=== PATIENT | female | born 1945 ===

== ENCOUNTER 2016-07-10 22:40 | Inpatient (IN) | payer OTHER, SELFPAY ==
[2016-07-10 22:40] VITALS: BMI 35.1
--- NOTE | 2016-07-10 23:38 | ED PDOC ---
HPI: Altered Mental Status Chief Complaint (Provider): Generalized weakness, confusion History Per: Patient, Family Onset/Duration Of Symptoms: Days Current Symptoms Are (Timing): Still Present Usual Baseline: Alert Oriented Use Of Anticoag/Antiplatlets: No Character Of Deficits: Left: Weakness (extremities), Right: Weakness Associated Symptoms: Confused, Weakness. denies: Fever, Chills, Chest Pain, Headache, Seizure, Vomiting, Diarrhea Additional Complaint(s): This is a 70 y/o Female with PMHx significant for Liver Cirrhosis w/ Esophageal varices, and Diabetes Mellitus under insulin treatment who presents accompanied by her family complaining of generalized weakness since yesterday, but progressively getting worse as per her son. Also as per patient's family she has been confused since today, associated with slurred speech, and body aches. Family states that " this is not her mental status baseline". Denies fever, chills, nausea, vomiting, diarrheas. Family reports that patient used to spit blood a while after she got the diagnosis of esophageal varices, however since the last two days has been increasing in amount. Denies dark stools or blood mixed with stools. Allergies: none Meds: Insulin, Spirinolactone, Furosemide, Omeprazole, Gabapentin, Lactulose PMD: Dr. Palmer at [facility] <Yani Jackson - Last Filed: 07/11/16 06:32> <Roby Tidwell - Last Filed: 07/12/16 15:56> Time Seen by Provider: 07/10/16 22:59 Chief Complaint (Nursing): Weakness/Neurological Deficit Supervising Attending Note - Supervising Attending Note The Documented history was done by the: Physician Environmental Health And Safety Manager, Attending Physician The documented physical exam was done by the: Physician Environmental Health And Safety Manager, Attending Physician The documented procedures were done by the: Physician Environmental Health And Safety Manager, Attending Physician EM CAVEAT: Acuity of Condition - Attestation: I have personally seen and examined this patient.: Yes I have fully participated in the care of the patient.: Yes I have reviewed all pertinent clinical information: Yes <Roby Tidwell - Last Filed: 07/12/16 15:56> Past Medical History Vital Signs: Last Vital Signs Temp 98.1 F 07/10/16 22:48 Pulse 68 07/10/16 22:48 Resp 16 07/10/16 22:48 BP 138/51 L 07/10/16 22:48 Pulse Ox 100 07/10/16 22:48 - Medical History PMH: Diabetes Denies: Chronic Kidney Disease Other PMH: Liver cirrhosis - Surgical History Surgical History: Cholecystectomy Denies: Pacemaker - Family History Family History: States: Unknown Family Hx <Yani Jackson - Last Filed: 07/11/16 06:32> Vital Signs: Last Vital Signs Temp 99 F 07/12/16 15:47 Pulse 74 07/12/16 15:47 Resp 20 07/12/16 15:47 BP 109/59 L 07/12/16 15:47 Pulse Ox 98 07/12/16 15:47 <Roby Tidwell - Last Filed: 07/12/16 15:56> - Home Medications Home Medications: Ambulatory Orders Medication Instructions Recorded Gabapentin [Neurontin] 300 mg PO DAILY 03/19/16 Furosemide [Lasix] 40 mg PO DAILY 07/11/16 Insulin Lispro Mix 75/25 [HumaLog 20 units SC DIN 07/11/16 MIX 75/25] Insulin Lispro Mix 75/25 [HumaLog 25 units SC ACB 07/11/16 MIX 75/25] Lactulose [Kristalose] 20 gm PO QID 07/11/16 Omeprazole 40 mg PO DAILY 07/11/16 Spironolactone [Aldactone] 50 mg PO DAILY 07/11/16 - Allergies Allergies/Adverse Reactions: Allergies Allergy/AdvReac Type Severity Reaction Status Date / Time No Known Allergies Allergy Verified 07/10/16 22:47 Review of Systems ROS Statement: Except As Marked, All Systems Reviewed And Found Negative <Yani Jackson - Last Filed: 07/11/16 06:32> Physical Exam - Physical Exam Head Exam: Positive for: ATRAUMATIC, NORMOCEPHALIC Skin: Positive for: Pallor Eye Exam: Negative for: Nystagmus, Conjunctival injection, Scleral icterus Cardiovascular/Chest: Positive for: Regular Rate, Rhythm Respiratory: Positive for: Normal Breath Sounds Gastrointestinal/Abdominal: Positive for: Bowel Sounds (increased), Soft, Organomegaly. Negative for: Tenderness, Distended, Guarding, Rebound, Asicites Back: Negative for: L CVA Tenderness, R CVA Tenderness Extremity: Positive for: Capillary Refill (WNL). Negative for: Pedal Edema Neurologic/Psych: Positive for: Oriented (x 3), Motor/Sensory Deficits ( weakness in upper and lower extremities), Other (drowsy, but arousable ) <Yani Jackson - Last Filed: 07/11/16 06:32> - Laboratory Results Result Diagrams: 07/10/16 00:14 07/10/16 00:14 - ECG O2 Sat by Pulse Oximetry: 100 <Yani Jackson - Last Filed: 07/11/16 06:32> - Laboratory Results Result Diagrams: 07/12/16 04:00 07/12/16 05:25 <Roby Tidwell - Last Filed: 07/12/16 15:56> Medical Decision Making Medical Decision Making: A: 70 y/o F with Liver cirrhosis/esophagela varice, and DM with altered mental status, and generalized weakness. R/O Hepatic encephalopathy vs CVA PLan: CBC, CMP, Type & screen, Ammonia levels, PT/PTT Drug screen EKG showed Normal findings, No acute ST or T wave changes Head CT w/o contrast Case discussed with Yaw Raphael Re-assessment CBC: showed H/H: WNL , however elevated MCV and RDW possible due to mixed deficiencies PT/INR : elevated, most likely due to her chronic Liver cirrhosis condition CMP: showed: increased BS: 162 mg/dl AST/ALT/Alkaline Phosphate elevated most likely due to chronic liver condition Ammonia levels elevated most likely due to chronic liver disease:96 Albumin decreased most likely due to chronic liver disease Inpatient team consult appreciated for hospital admission Case discussed with Dr. Tidwell <Yani Jackson - Last Filed: 07/11/16 06:32> Disposition - Patient ED Disposition Is Patient to be Admitted: Yes Discussed With : Roby Tidwell - Disposition Disposition Time: 01:30 <Yani Jackson Last Filed: 07/11/16 06:32> - Patient ED Disposition Is Patient to be Admitted: Yes Discussed With : Palak Best Doctor Will See Patient In The: ED Counseled Patient/Family Regarding: Studies Performed, Diagnosis - Disposition Disposition Time: 01:00 - Pt Status Changed To: Hospital Disposition Of: Inpatient - Admit Certification Admit to Inpatient:: After my assessment, the patient will require hospitalization for at least two midnights. This is because of the severity of symptoms shown, intensity of services needed, and/or the medical risk in this patient being treated as an outpatient. - POA Present On Arrival: Poor Glycemic Control <Roby Tidwell - Last Filed: 07/12/16 15:56> - Clinical Impression Clinical Impression: Hepatic encephalopathy, Cirrhosis, Altered mental status, Serum ammonia increased, Generalized muscle weakness - Disposition Condition: FAIR
[2016-07-11 00:18] LABS: BASO % 0.6 % (0.0-2.0); EOS % 1.1 % (0.0-4.0); HEMATOCRIT 36.4 % (34.0-47.0); LYMPH # 0.9 K/uL (1.0-4.3); LYMPH % 22.8 % (20.0-40.0); MEAN CELL VOLUME 104.2 fl (81.0-99.0); MEAN CORPUSCULAR HGB CONC 33.5 g/dL (33.0-37.0); MEAN PLATELET VOLUME 9.9 fl (7.2-11.7); MONO # 0.5 K/uL (0.0-0.8); MONO % 12.5 % (0.0-10.0); NEUT # 2.6 K/uL (1.8-7.0); NRBC % 0.1 % (0.0-0.0); RED CELL DISTRIBUTION WIDTH 14.6 % (11.5-14.5); WHITE BLOOD COUNT 4.1 K/uL (4.8-10.8)
[2016-07-11 00:29] LABS: ALCOHOL SERUM < 10 mg/dl (0-10); ALKALINE PHOSPHATASE 224 U/L (38-126); ALT/SGPT 60 U/L (9-52); AST/SGOT 76 U/L (14-36); BILIRUBIN,TOTAL 1.1 mg/dl (0.2-1.3); BLOOD UREA NITROGEN 18 mg/dl (7-17); CALCIUM 9.1 mg/dL (8.4-10.2); CARBON DIOXIDE 21 mmol/L (22-30); CHLORIDE 102 mmol/L (98-107); GFR AFRICAN-AMERICAN > 60; GLUCOSE,RANDOM 144 mg/dL (65-105); POTASSIUM 4.1 MMOL/L (3.6-5.0); SODIUM 134 mmol/l (132-148)
[2016-07-11] MEDS ORDERED: Sodium Chloride 0.9% 1,000 ML IV SCH (00:30)
[2016-07-11 00:33] LABS: ALB/GLOB RATIO 0.8 (1.0-2.1)
[2016-07-11 00:33] LABS: PARTIAL THROMBOPLASTIN TIME 31.6 SECONDS (23.3-32.5)
--- NOTE | 2016-07-11 02:07 | CP.PCM.HP ---
History of Present Illness - History of Present Illness History of Present Illness: 70F seen and examined at bedside, primary source of HPI from son (Maki). 70F brought in by family for altered mental status that was noticed yesterday but worsened today. Last week she did have a little bit of "the flu" but only took advil and has otherwise been "fine". Son denies: SOB/CP/palpitations/loss of appetite/fever/chills/N/V/abdominal pain/diarrhea/sick contacts/focal deficits/speech changes, and say she has been taking all medications. He has noticed that today she went to the bathroom frequently and small amounts as per . Last BM today was formed, yellowish. Pt was oriented to person only and denied dysuria, but has chronic abdominal pain. PMD: [facility], last visit 06/14/16 GI: Dr Alejandre, last visit 05/31/16 PMH: Cirrhosis(etiology unknown), DM, HTN, Esophageal varices, denies CVA/KS/DVT /PE ALL: NKDA Meds: See Med Rec Smoke: Denies Alcohol: Denies Drugs: Denies Present on Admission - Present on Admission Any Indicators Present on Admission: Yes History of Uncontrolled Diabetes: Yes Review of Systems - Review of Systems Review of Systems: As per family in HPI Past Patient History - Past Medical History & Family History Past Medical History?: Yes - Past Social History Smoking Status: Never Smoked - CARDIAC Hx Cardiac Disorders: Yes - PULMONARY Hx Respiratory Disorders: No - NEUROLOGICAL Hx Neurological Disorder: Yes - HEENT Hx HEENT Problems: No - RENAL Hx Chronic Kidney Disease: No - ENDOCRINE/METABOLIC Hx Endocrine Disorders: No - HEMATOLOGICAL/ONCOLOGICAL Hx Blood Disorders: No - INTEGUMENTARY Hx Dermatological Problems: No - MUSCULOSKELETAL/RHEUMATOLOGICAL Hx Musculoskeletal Disorders: No - GASTROINTESTINAL Hx Gastrointestinal Disorders: No - GENITOURINARY/GYNECOLOGICAL Hx Genitourinary Disorders: No - PSYCHIATRIC Hx Psychophysiologic Disorder: No - SURGICAL HISTORY Hx Cholecystectomy: Yes - ANESTHESIA Hx Anesthesia: Yes Hx Anesthesia Reactions: No Hx Malignant Hyperthermia: No Meds Allergies/Adverse Reactions: Allergies Allergy/AdvReac Type Severity Reaction Status Date / Time No Known Allergies Allergy Verified 07/10/16 22:47 Physical Exam - Constitutional Appears: Non-toxic (Drowsy), No Acute Distress - Head Exam Head Exam: ATRAUMATIC, NORMAL INSPECTION - Eye Exam Eye Exam: Conjunctival injection (LEFT eye), EOMI, Normal appearance, PERRL. absent: Nystagmus - ENT Exam ENT Exam: Mucous Membranes Dry, Normal Exam, Normal Oropharynx - Neck Exam Neck exam: Positive for: Full Rom, Normal Inspection - Respiratory Exam Respiratory Exam: Clear to Auscultation Bilateral, NORMAL BREATHING PATTERN. absent: Rales, Rhonchi, Wheezes - Cardiovascular Exam Cardiovascular Exam: REGULAR RHYTHM. absent: JVD - GI/Abdominal Exam GI & Abdominal Exam: Normal Bowel Sounds, Soft. absent: Tenderness - Extremities Exam Extremities exam: Positive for: normal capillary refill, normal inspection, pedal pulses present. Negative for: calf tenderness, pedal edema - Skin Skin Exam: Normal Color, Warm Results - Vital Signs Recent Vital Signs: Last Vital Signs Temp 36.7 C 07/10/16 22:48 Pulse 62 07/11/16 01:50 Resp 14 07/11/16 01:50 BP 129/64 07/11/16 01:50 Pulse Ox 98 07/11/16 01:30 - Labs Result Diagrams: 07/10/16 00:14 07/10/16 00:14 Assessment & Plan (1) Hepatic encephalopathy Assessment and Plan: Recurrent encephalopathy, Ammonia- 96, may be 2/2 UTI although recently recovered from viral URI and taking all medications. No focal deficits(CT head negative)/fevers/leukocytosis/respiratory symptoms to suggest AMS from competing etiology. - Admit to Telemetry - Consult GI (Dr Alejandre) - Repeat Ammonia Level - Lactulose 20g, PO, QID titrate to BM 3x/day Status: Acute (2) DVT prophylaxis Assessment and Plan: Low platelets contraindicated for Lovenox. - SCDs b/l, continuous Status: Acute (3) Cirrhosis Assessment and Plan: Chronic, unknown etiology being followed by Dr Alejandre. Last visit 05/31/2016, pt has small esophageal varices and dilated PD benign pathology. Not stable given recurrent encephalopathy. MELD-Na: 12 - Consult GI (Dr Alejandre) - c/w Spironolactone re-started 06/14/2016 by PMD - c/w Lasix re-started 06/14/16 by PMD - c/w Lactulose started by PMD should titrate to BM 3x/day Status: Chronic (4) Diabetes Assessment and Plan: Chronic, appears to be controlled with A1C-5.5 (03/19/16) - c/w HUmalog Mix 75/25: 25U ACB/20U ACD Status: Chronic (5) HTN (hypertension) Assessment and Plan: Appears that medication was discontinued, will continue to monitor. Status: Chronic
[2016-07-11] MEDS ORDERED: Dextrose 50% SYRINGE Inj (50 ml) IV PRN (02:20)
[2016-07-11] MEDS ORDERED: Glucagon Recombinant 1 mg Inj IM PRN (02:20)
[2016-07-11 07:06] LABS: RBC URINE 1 /hpf (0-3); URINE BACTERIA RARE (<OCC); URINE BILIRUBIN NEGATIVE (NEGATIVE); URINE BLOOD NEGATIVE (NEGATIVE); URINE COLOR YELLOW (YELLOW); URINE GLUCOSE (UA) NEG (Normal); URINE KETONE NEGATIVE (NEGATIVE); URINE LEUKOCYTE ESTERASE TRACE Leu/uL (Negative); URINE PROTEIN NEGATIVE (NEGATIVE); URINE UROBILINOGEN 0.2-1.0 mg/dL (0.2-1.0); WBC URINE 3 /hpf (0-5)
[2016-07-11 07:43] LABS: ALB/GLOB RATIO 0.7 (1.0-2.1); ALKALINE PHOSPHATASE 210 U/L (38-126); ALT/SGPT 60 U/L (9-52); AST/SGOT 77 U/L (14-36); BILIRUBIN,TOTAL 1.3 mg/dl (0.2-1.3); BLOOD UREA NITROGEN 17 mg/dl (7-17); CARBON DIOXIDE 23 mmol/L (22-30); CHLORIDE 106 mmol/L (98-107); GFR AFRICAN-AMERICAN > 60; GLUCOSE,RANDOM 144 mg/dL (65-105); POTASSIUM 4.7 MMOL/L (3.6-5.0); SODIUM 139 mmol/l (132-148); TOTAL PROTEIN 6.6 G/DL (6.3-8.2)
[2016-07-11 07:51] LABS: BASO % 0.5 % (0.0-2.0); EOS % 1.4 % (0.0-4.0); HEMATOCRIT 35.8 % (34.0-47.0); LYMPH # 0.8 K/uL (1.0-4.3); LYMPH % 24.3 % (20.0-40.0); MEAN CELL VOLUME 104.4 fl (81.0-99.0); MEAN CORPUSCULAR HEMOGLOBIN 35.3 pg (27.0-31.0); MEAN CORPUSCULAR HGB CONC 33.8 g/dL (33.0-37.0); MEAN PLATELET VOLUME 9.6 fl (7.2-11.7); MONO # 0.4 K/uL (0.0-0.8); MONO % 13.5 % (0.0-10.0); NEUT % 60.3 % (50.0-75.0); NRBC % 0.2 % (0.0-0.0); WHITE BLOOD COUNT 3.3 K/uL (4.8-10.8)
[2016-07-11 08:11] LABS: THYROID STIMULATING HORMONE 1.74 mIU/ML (0.46-4.68)
[2016-07-11] MEDS: Pantoprazole 40 mg EC Tab PO SCH (08:41)
[2016-07-11] MEDS: Insulin Lispro Mix 75/25 100 units/ml (HumaLog) 10ml SC SCH ×2 (08:42→17:12)
[2016-07-11] MEDS ORDERED: Enoxaparin 40 mg Syringe SC SCH (09:00)
[2016-07-11] MEDS ORDERED: Lactulose 10 gm/15 ml Syrup PO SCH (09:00)
[2016-07-11] MEDS ORDERED: Patient's Own Med (Omeprazole [Omeprazole] 40 MG) PO SCH (09:00)
[2016-07-11] MEDS ORDERED: LACTULOSE 20 GM PO SCH (09:00)
--- NOTE | 2016-07-11 09:01 | CARD ---
APPROVED REPORT EKG Measurement Heart [id number] <Conclusion> Normal sinus rhythm Normal ECG
--- NOTE | 2016-07-11 09:46 | CT ---
PROCEDURE: CT HEAD WITHOUT CONTRAST. HISTORY: confusion COMPARISON: 03/19/2016 TECHNIQUE: Axial computed tomography images were obtained through the head/brain without intravenous contrast. Radiation dose: Total exam DLP = 751.30 mGy-cm. This CT exam was performed using one or more of the following dose reduction techniques: Automated exposure control, adjustment of the mA and/or kV according to patient size, and/or use of iterative reconstruction technique. FINDINGS: HEMORRHAGE: No intracranial hemorrhage. BRAIN: No mass effect or edema. Minimal periventricular chronic microvascular white matter ischemic change. No evidence of acute infarct. Incidentally noted scattered small cortical calcifications common nonspecific. Unchanged from prior examination. These may be infectious or inflammatory in etiology. VENTRICLES: Unremarkable. No hydrocephalus. CALVARIUM: Unremarkable. PARANASAL SINUSES: Unremarkable as visualized. No significant inflammatory changes. MASTOID AIR CELLS: Unremarkable as visualized. No inflammatory changes. OTHER FINDINGS: None. IMPRESSION: No intracranial mass, hemorrhage or evidence of acute infarct. Chronic periventricular white matter ischemic change. Incidental scattered nodular cortical calcifications, nonspecific. Preliminary interpretation of this examination was reported by [facility] at 12:14 a.m. on 07/11/2016. There is concurrence of this report with the preliminary interpretation.
--- NOTE | 2016-07-11 09:54 | CP.PCM.PN ---
Subjective - Date & Time of Evaluation Date of Evaluation: 07/11/16 Time of Evaluation: 09:50 - Subjective Subjective: Patient seen and examined at bed side while she was eating breakfast , alert oreientedx3 , Reported felling better, good appetite, she reported one bowel movement normal last night , no evidence of active bleeding H/H stable . she denied any complain. Ammonia elevated 119. Objective - Vital Signs/Intake and Output Vital Signs (last 24 hours): Temp Pulse Resp BP Pulse Ox 98.3 F 65 18 112/63 100 07/11/16 08:03 07/11/16 08:03 07/11/16 08:03 07/11/16 08:42 07/11/16 08:03 - Medications Medications: Current Medications Dextrose (Glutose 15) 0 gm PO ONCE PRN; Protocol PRN Reason: Hypoglycemia Protocol Dextrose (Dextrose 50% Inj) 0 ml IV STAT PRN; Protocol PRN Reason: Hyglycemia Protocol Furosemide (Lasix) 40 mg PO DAILY [facility] Last Admin: 07/11/16 08:42 Dose: 40 mg Glucagon (Glucagen Diagnostic Kit) 0 mg IM STAT PRN; Protocol PRN Reason: Hypoglycemia Protocol Sodium Chloride (Sodium Chloride 0.9%) 1,000 mls @ 50 mls/hr IV .Q20H [facility] Stop: 07/12/16 00:31 Last Admin: 07/11/16 00:49 Dose: 50 mls/hr Insulin Lispro Protam/Lispro Human (Humalog Mix 75/25) 25 units SC ACB [facility] Last Admin: 07/11/16 08:42 Dose: 25 units Insulin Lispro Protam/Lispro Human (Humalog Mix 75/25) 20 units SC DIN [facility] Lactulose (Enulose) 20 gm PO QID [facility] Last Admin: 07/11/16 08:41 Dose: 20 gm Pantoprazole Sodium (Protonix Ec Tab) 40 mg PO DAILY [facility] Last Admin: 07/11/16 08:41 Dose: 40 mg Spironolactone (Aldactone) 50 mg PO DAILY [facility] Last Admin: 07/11/16 08:42 Dose: 50 mg - Labs Labs: 07/11/16 06:30 07/11/16 06:30 PT 12.4 SECONDS (9.6-11.2) H 07/11/16 06:30 INR 1.19 (0.92-1.08) H 07/11/16 06:30 APTT 31.6 SECONDS (23.3-32.5) 07/10/16 23:59 - Constitutional Appears: No Acute Distress - Head Exam Head Exam: NORMAL INSPECTION - Eye Exam Eye Exam: Normal appearance - ENT Exam ENT Exam: Mucous Membranes Moist - Neck Exam Neck Exam: Full ROM - Respiratory Exam Respiratory Exam: Clear to Ausculation Bilateral. absent: Rales, Rhonchi, Wheezes - Cardiovascular Exam Cardiovascular Exam: REGULAR RHYTHM, RRR, +S1, +S2. absent: JVD - GI/Abdominal Exam GI & Abdominal Exam: Soft, Normal Bowel Sounds - Extremities Exam Extremities Exam: Full ROM, Normal Capillary Refill - Neurological Exam Neurological Exam: Alert, Awake, Normal Gait, Oriented x3 Neuro motor strength exam: Left Upper Extremity: 5, Right Upper Extremity: 5, Left Lower Extremity: 5, Right Lower Extremity: 5 - Psychiatric Exam Psychiatric exam: Normal Affect - Skin Skin Exam: Dry, Normal Color Assessment and Plan - Assessment and Plan (Free Text) Assessment: (1) Hepatic encephalopathy Assessment and Plan: Recurrent encephalopathy, Ammonia- 96, may be 2/2 UTI although recently recovered from viral URI and taking all medications. No focal deficits(CT head negative)/fevers/leukocytosis/respiratory symptoms to suggest AMS from competing etiology. - Low prot diet 60g /day - Consult GI (Dr Alejandre) - Ammonia Level 119 - Lactulose 20g, PO, QID titrate to BM 3x/day -Repeat Amonia PM Status: Acute (2) Cirrhosis Assessment and Plan: Chronic, unknown etiology being followed by Dr Alejandre. Last visit 05/31/2016, pt has small esophageal varices and dilated PD benign pathology. Not stable given recurrent encephalopathy. MELD-Na: 12 - Consult GI (Dr Alejandre) - c/w Spironolactone re-started 06/14/2016 by PMD - c/w Lasix re-started 06/14/16 by PMD - c/w Lactulose started by PMD should titrate to BM 3x/day Status: Chronic (3) Diabetes Assessment and Plan: - controlled IDDM Chronic, appears to be controlled with A1C-5.5 (03/19/16) - c/w HUmalog Mix 75/25: 25U ACB/20U ACD - hypoglycemia protocols -ADA diet Status: Chronic (4) HTN (hypertension) Assessment and Plan: Appears that medication was discontinued, will continue to monitor. Status: Chronic (5) DVT prophylaxis Assessment and Plan: Low platelets contraindicated for Lovenox. - SCDs b/l, continuous Status: Acute
[2016-07-11] MEDS: Insulin Regular 100 units/ml SC SCH ×2 (17:12→23:07)
[2016-07-11 17:21] LABS: FOLATE 15.1 ng/mL
[2016-07-12 06:22] LABS: HEMATOCRIT 33.3 % (34.0-47.0); MEAN CORPUSCULAR HEMOGLOBIN 35.4 pg (27.0-31.0); MEAN CORPUSCULAR HGB CONC 33.7 g/dL (33.0-37.0)
[2016-07-12 06:27] LABS: BLOOD UREA NITROGEN 17 mg/dl (7-17); CALCIUM 8.4 mg/dL (8.4-10.2); CARBON DIOXIDE 20 mmol/L (22-30); CHLORIDE 106 mmol/L (98-107); GFR AFRICAN-AMERICAN > 60; GLUCOSE,RANDOM 132 mg/dL (65-105); POTASSIUM 4.4 MMOL/L (3.6-5.0); SODIUM 136 mmol/l (132-148)
[2016-07-12] MEDS: Insulin Lispro Mix 75/25 100 units/ml (HumaLog) 10ml SC SCH ×2 (06:41→16:42)
[2016-07-12] MEDS: Insulin Regular 100 units/ml SC SCH ×4 (06:43→23:59)
--- NOTE | 2016-07-12 08:19 | CP.PCM.PN ---
Subjective - Date & Time of Evaluation Date of Evaluation: 07/12/16 Time of Evaluation: 08:11 - Subjective Subjective: pt seen and examined at bedside this morning. NAEO. Lying in bed comfortably, NAD. Reports 1 bowel movement last night and one this morning, 2 yesterday during the day. No new complaints. Alert to self and place, not date/time. Tolerating PO intake without difficulty. Denies fever/chills, headaches, changes in vision, CP/SOB/palpitations, N/V/C, urinary symptoms, numbness/ tingling. Objective - Vital Signs/Intake and Output Vital Signs (last 24 hours): Temp Pulse Resp BP Pulse Ox 98.4 F 62 18 103/48 L 97 07/12/16 08:01 07/12/16 08:01 07/12/16 08:01 07/12/16 08:01 07/12/16 08:01 - Medications Medications: Current Medications Dextrose (Glutose 15) 0 gm PO ONCE PRN; Protocol PRN Reason: Hypoglycemia Protocol Dextrose (Dextrose 50% Inj) 0 ml IV STAT PRN; Protocol PRN Reason: Hyglycemia Protocol Furosemide (Lasix) 40 mg PO DAILY [facility] Last Admin: 07/11/16 08:42 Dose: 40 mg Glucagon (Glucagen Diagnostic Kit) 0 mg IM STAT PRN; Protocol PRN Reason: Hypoglycemia Protocol Insulin Human Regular (Humulin R) 0 units SC ACCU-CHECK [facility] PRN Reason: Protocol Last Admin: 07/12/16 06:43 Dose: Not Given Insulin Lispro Protam/Lispro Human (Humalog Mix 75/25) 25 units SC ACB [facility] Last Admin: 07/12/16 06:41 Dose: Not Given Insulin Lispro Protam/Lispro Human (Humalog Mix 75/25) 20 units SC DIN [facility] Last Admin: 07/11/16 17:12 Dose: 20 units Lactulose (Enulose) 20 gm PO BID [facility] Last Admin: 07/11/16 17:12 Dose: 20 gm Pantoprazole Sodium (Protonix Ec Tab) 40 mg PO DAILY [facility] Last Admin: 07/11/16 08:41 Dose: 40 mg Spironolactone (Aldactone) 50 mg PO DAILY [facility] Last Admin: 07/11/16 08:42 Dose: 50 mg - Labs Labs: 07/12/16 04:00 07/12/16 05:25 PT 12.4 SECONDS (9.6-11.2) H 07/11/16 06:30 INR 1.19 (0.92-1.08) H 07/11/16 06:30 APTT 31.6 SECONDS (23.3-32.5) 07/10/16 23:59 - Constitutional Appears: Non-toxic, No Acute Distress - Eye Exam Eye Exam: EOMI, Scleral icterus. absent: Conjunctival injection, Nystagmus Pupil Exam: PERRL - ENT Exam ENT Exam: Mucous Membranes Moist - Respiratory Exam Respiratory Exam: Clear to Ausculation Bilateral, NORMAL BREATHING PATTERN. absent: Rales, Rhonchi, Wheezes, Respiratory Distress - Cardiovascular Exam Cardiovascular Exam: REGULAR RHYTHM, RRR, +S1, +S2. absent: Gallop, JVD, Rubs, Murmur - GI/Abdominal Exam GI & Abdominal Exam: Soft, Normal Bowel Sounds. absent: Distended, Guarding, Rigid, Tenderness, Rebound - Extremities Exam Extremities Exam: Normal Inspection. absent: Calf Tenderness, Pedal Edema, Tenderness - Neurological Exam Neurological Exam: Alert, Awake, CN II-XII Intact. absent: Oriented x3 - Psychiatric Exam Psychiatric exam: Normal Affect, Normal Mood - Skin Skin Exam: Dry, Intact, Normal Color, Warm Assessment and Plan - Assessment and Plan (Free Text) Assessment: 70 y/o female with a PMHx remarkable for liver cirrhosis, IDDM2, and hypertension admitted for Hepatic Encephalopathy. Plan: (1) Hepatic encephalopathy -Ammonia on presentation: 96 -Low prot diet: 60 g/day -Consult GI (Dr Alejandre) -Ammonia Level 119 -Lactulose 20g, PO, TID titrate to BM 3x/day -Repeat Ammonia PM (2) Liver Cirrhosis -unknown etiology being followed by Dr Alejandre. Last visit 05/31/2016 -MELD-Na: 12 -Consult GI (Dr Alejandre) -c/w Spironolactone re-started 06/14/2016 by PMD -c/w Lasix re-started 06/14/16 by PMD -c/w Lactulose started by PMD should titrate to BM 3x/day (3) IDDM2 (well controlled) -controlled with A1C-5.5 (03/19/16) -c/w Humalog Mix 75/25: 25U ACB/20U ACD -hypoglycemia protocols -ADA diet (4) Hypertension (well controlled) -Appears that medication was discontinued, will continue to monitor. (5) DVT prophylaxis Low platelets contraindicated for Lovenox. -SCDs
[2016-07-12] MEDS: Pantoprazole 40 mg EC Tab PO SCH (09:20)
--- NOTE | 2016-07-12 13:08 | CP.PCM.CON ---
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 Patient oriented to person and location, not oriented to the year. Family at bedside and patient confirm recent upper respiratory infection last week with use of Advil for pain and fever. Denies recent travel, sick contacts, or antibiotic use. Notes onset of confusion since yesterday leading to ER presentation. Family and patient endorse compliance to diuretics and Lactulose. Patient notes daily bowel movement. She denies fever, chills, sweats, leg swelling, abdominal pain, distension, nausea, vomiting, hematemesis, melena, hematochezia, diarrhea. Prior EGD 04/2016 showed Gastritis, moderate portal hypertensive gastropathy and normal esophagus. EUS 05/06/16 showed small esophageal varices (<5mm), CBD and common hepatic duct dilatation of 11mm in setting of prior cholecystectomy. Family -denies liver cancer, colon cancer Surgical-hysterectomy, cholecystectomy Social-denies tobacco, alcohol, illicit drug use Review of Systems - Review of Systems Review of Systems: A 12-point review of systems negative except for as above Past Patient History - Past Medical History & Family History Past Medical History?: Yes - Past Social History Smoking Status: Never Smoked - CARDIAC Hx Pacemaker: No - PULMONARY Hx Respiratory Disorders: No - NEUROLOGICAL Hx Neurological Disorder: Yes - HEENT Hx HEENT Problems: No - RENAL Hx Chronic Kidney Disease: No - ENDOCRINE/METABOLIC Hx Endocrine Disorders: No - HEMATOLOGICAL/ONCOLOGICAL Hx Blood Disorders: No - INTEGUMENTARY Hx Dermatological Problems: No - MUSCULOSKELETAL/RHEUMATOLOGICAL Hx Musculoskeletal Disorders: No - GASTROINTESTINAL Hx Gastrointestinal Disorders: No - GENITOURINARY/GYNECOLOGICAL Hx Genitourinary Disorders: No - PSYCHIATRIC Hx Psychophysiologic Disorder: No - SURGICAL HISTORY Hx Cholecystectomy: Yes - ANESTHESIA Hx Anesthesia: Yes Hx Anesthesia Reactions: No Hx Malignant Hyperthermia: No Meds Allergies/Adverse Reactions: Allergies Allergy/AdvReac Type Severity Reaction Status Date / Time No Known Allergies Allergy Verified 07/10/16 22:47 - Medications Medications: Current Medications Dextrose (Glutose 15) 0 gm PO ONCE PRN; Protocol PRN Reason: Hypoglycemia Protocol Dextrose (Dextrose 50% Inj) 0 ml IV STAT PRN; Protocol PRN Reason: Hyglycemia Protocol Furosemide (Lasix) 40 mg PO DAILY [facility] Last Admin: 07/12/16 09:19 Dose: 40 mg Glucagon (Glucagen Diagnostic Kit) 0 mg IM STAT PRN; Protocol PRN Reason: Hypoglycemia Protocol Insulin Human Regular (Humulin R) 0 units SC ACCU-CHECK SUHA PRN Reason: Protocol Last Admin: 07/12/16 12:15 Dose: 4 units Insulin Lispro Protam/Lispro Human (Humalog Mix 75/25) 25 units SC ACB [facility] Last Admin: 07/12/16 06:41 Dose: Not Given Insulin Lispro Protam/Lispro Human (Humalog Mix 75/25) 20 units SC DIN [facility] Last Admin: 07/11/16 17:12 Dose: 20 units Lactulose (Enulose) 20 gm PO TID [facility] Last Admin: 07/12/16 12:15 Dose: 20 gm Pantoprazole Sodium (Protonix Ec Tab) 40 mg PO DAILY [facility] Last Admin: 07/12/16 09:20 Dose: 40 mg Spironolactone (Aldactone) 50 mg PO DAILY [facility] Last Admin: 07/12/16 09:21 Dose: Not Given Physical Exam - Constitutional Appears: Non-toxic, No Acute Distress - Head Exam Head Exam: ATRAUMATIC, NORMOCEPHALIC - Eye Exam Eye Exam: EOMI, PERRL Pupil Exam: PERRL. absent: Miosis, Mydriatic - ENT Exam ENT Exam: Mucous Membranes Moist, Normal Oropharynx - Neck Exam Neck exam: Positive for: Full Rom, Normal Inspection - Respiratory Exam Respiratory Exam: Clear to Auscultation Bilateral. absent: Rales, Rhonchi, Wheezes - Cardiovascular Exam Cardiovascular Exam: RRR, +S1, +S2. absent: Gallop, Rubs - GI/Abdominal Exam GI & Abdominal Exam: Normal Bowel Sounds, Soft. absent: Distended, Firm, Guarding, Organomegaly, Rebound, Rigid, Tenderness - Extremities Exam Extremities exam: Positive for: normal inspection. Negative for: pedal edema - Neurological Exam Neurological exam: Alert - Psychiatric Exam Psychiatric exam: Normal Affect, Normal Mood - Skin Skin Exam: Dry, Intact, Normal Color, Warm Results - Vital Signs Recent Vital Signs: Last Vital Signs Temp 99.1 F 07/12/16 12:00 Pulse 69 04/10/17 12:00 Resp 18 07/12/16 12:00 BP 108/60 07/12/16 12:00 Pulse Ox 99 07/12/16 12:00 - Labs Result Diagrams: 07/12/16 04:00 07/12/16 05:25 Labs: Laboratory Results - last 24 hr 07/11/16 07/11/16 07/11/16 06:30 11:15 15:48 WBC RBC Hgb Hct MCV MCH MCHC RDW Plt Count Sodium Potassium Chloride Carbon Dioxide Anion Gap BUN Creatinine Est GFR ( Amer) Est GFR (Non-Af Amer) POC Glucose (mg/dL) 303 H 304 H Random Glucose Calcium Ammonia Folate 15.1 07/11/16 07/11/16 07/12/16 18:30 22:14 04:00 WBC 4.0 L RBC 3.17 L Hgb 11.2 L Hct 33.3 L MCV 105.0 H MCH 35.4 H MCHC 33.7 RDW 15.0 H Plt Count 75 L Sodium Potassium Chloride Carbon Dioxide Anion Gap BUN Creatinine Est GFR ( Amer) Est GFR (Non-Af Amer) POC Glucose (mg/dL) 136 H Random Glucose Calcium Ammonia 116 H* Folate 07/12/16 07/12/16 07/12/16 05:25 05:29 11:13 WBC RBC Hgb Hct MCV MCH MCHC RDW Plt Count Sodium 136 Potassium 4.4 Chloride 106 Carbon Dioxide 20 L Anion Gap 14 BUN 17 Creatinine 0.5 L Est GFR ( Amer) > 60 Est GFR (Non-Af Amer) > 60 POC Glucose (mg/dL) 136 H 346 H Random Glucose 132 H Calcium 8.4 Ammonia Folate Assessment & Plan - Assessment and Plan (Free Text) Assessment: 70 year old female with history of cryptogenic cirrhosis, unclear etiology, 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 Endorsed compliance to diuretics and Lactulose. Prior EGD 04/2016 showed Gastritis, moderate portal hypertensive gastropathy and normal esophagus. EUS 05/06/16 showed small esophageal varices (< 5mm), CBD and common hepatic duct dilatation of 11mm in setting of prior cholecystectomy. Plan: >MELD 12 on admission, pending INR and LFTs today >continue Lasix/spironolactone >strict I&Os >mentation improved to baseline on evaluation >continue Lactulose, titrate to 2-3 BMs per day >daily LFTS, PT/INR >low sodium diet >will follow clinical course <Megna Alejandre MD - Last Filed: 07/12/16 16:03> Meds - Medications Medications: Current Medications Dextrose (Glutose 15) 0 gm PO ONCE PRN; Protocol PRN Reason: Hypoglycemia Protocol Dextrose (Dextrose 50% Inj) 0 ml IV STAT PRN; Protocol PRN Reason: Hyglycemia Protocol Furosemide (Lasix) 40 mg PO DAILY [facility] Last Admin: 07/12/16 09:19 Dose: 40 mg Glucagon (Glucagen Diagnostic Kit) 0 mg IM STAT PRN; Protocol PRN Reason: Hypoglycemia Protocol Insulin Human Regular (Humulin R) 0 units SC ACCU-CHECK SUHA PRN Reason: Protocol Last Admin: 07/12/16 12:15 Dose: 4 units Insulin Lispro Protam/Lispro Human (Humalog Mix 75/25) 25 units SC ACB [facility] Last Admin: 07/12/16 06:41 Dose: Not Given Insulin Lispro Protam/Lispro Human (Humalog Mix 75/25) 20 units SC DIN [facility] Last Admin: 07/11/16 17:12 Dose: 20 units Lactulose (Enulose) 20 gm PO TID [facility] Last Admin: 07/12/16 12:15 Dose: 20 gm Pantoprazole Sodium (Protonix Ec Tab) 40 mg PO DAILY [facility] Last Admin: 07/12/16 09:20 Dose: 40 mg Spironolactone (Aldactone) 50 mg PO DAILY [facility] Last Admin: 07/12/16 09:21 Dose: Not Given Results - Vital Signs Recent Vital Signs: Last Vital Signs Temp 99 F 07/12/16 15:47 Pulse 74 07/12/16 15:47 Resp 20 07/12/16 15:47 BP 109/59 L 07/12/16 15:47 Pulse Ox 98 07/12/16 15:47 - Labs Result Diagrams: 07/12/16 04:00 07/12/16 05:25 Labs: Laboratory Results - last 24 hr 07/11/16 07/11/16 07/11/16 06:30 11:15 15:48 WBC RBC Hgb Hct MCV MCH MCHC RDW Plt Count PT INR Sodium Potassium Chloride Carbon Dioxide Anion Gap BUN Creatinine Est GFR ( Amer) Est GFR (Non-Af Amer) POC Glucose (mg/dL) 303 H 304 H Random Glucose Calcium Total Bilirubin Direct Bilirubin AST ALT Alkaline Phosphatase Ammonia Total Protein Albumin Globulin Albumin/Globulin Ratio Folate 15.1 07/11/16 07/11/16 07/12/16 18:30 22:14 04:00 WBC 4.0 L RBC 3.17 L Hgb 11.2 L Hct 33.3 L MCV 105.0 H MCH 35.4 H MCHC 33.7 RDW 15.0 H Plt Count 75 L PT INR Sodium Potassium Chloride Carbon Dioxide Anion Gap BUN Creatinine Est GFR ( Amer) Est GFR (Non-Af Amer) POC Glucose (mg/dL) 136 H Random Glucose Calcium Total Bilirubin Direct Bilirubin AST ALT Alkaline Phosphatase Ammonia 116 H* Total Protein Albumin Globulin Albumin/Globulin Ratio Folate 07/12/16 07/12/16 07/12/16 05:25 05:29 11:13 WBC RBC Hgb Hct MCV MCH MCHC RDW Plt Count PT INR Sodium 136 Potassium 4.4 Chloride 106 Carbon Dioxide 20 L Anion Gap 14 BUN 17 Creatinine 0.5 L Est GFR ( Amer) > 60 Est GFR (Non-Af Amer) > 60 POC Glucose (mg/dL) 136 H 346 H Random Glucose 132 H Calcium 8.4 Total Bilirubin Direct Bilirubin AST ALT Alkaline Phosphatase Ammonia Total Protein Albumin Globulin Albumin/Globulin Ratio Folate 07/12/16 13:30 WBC RBC Hgb Hct MCV MCH MCHC RDW Plt Count PT 12.7 H INR 1.22 H Sodium Potassium Chloride Carbon Dioxide Anion Gap BUN Creatinine Est GFR ( Amer) Est GFR (Non-Af Amer) POC Glucose (mg/dL) Random Glucose Calcium Total Bilirubin 2.1 H Direct Bilirubin 0.3 AST 71 H ALT 53 H Alkaline Phosphatase 198 H Ammonia Total Protein 6.1 L Albumin 2.7 L Globulin 3.5 Albumin/Globulin Ratio 0.8 L Folate Attending/Attestation - Attestation I have personally seen and examined this patient.: Yes I have fully participated in the care of the patient.: Yes I have reviewed all pertinent clinical information: Yes Notes (Text): 07/12/16 16:02 70 year old female with history of cryptogenic cirrhosis, decompensated cirrhosis secondary to ascites/encephalopathy presenting with altered mental status in setting of HE now resolving. Endorsed compliance to diuretics and Lactulose. Prior EGD 04/2016 showed Gastritis, moderate portal hypertensive gastropathy and normal esophagus. EUS 05/06/16 showed small esophageal varices (< 5mm), CBD and common hepatic duct dilatation of 11mm in setting of prior cholecystectomy. Plan: >MELD 12 on admission, pending INR and LFTs today >continue Lasix/spironolactone >strict I&Os >mentation improved to baseline on evaluation >continue Lactulose, titrate to 2-3 BMs per day >daily LFTS, PT/INR >low sodium diet >will follow clinical course
[2016-07-12 14:29] LABS: BILIRUBIN,TOTAL 2.1 mg/dl (0.2-1.3); TOTAL PROTEIN 6.1 G/DL (6.3-8.2)
[2016-07-12 14:30] LABS: ALB/GLOB RATIO 0.8 (1.0-2.1)
[2016-07-13] MEDS: Insulin Regular 100 units/ml SC SCH ×2 (06:38→12:14)
[2016-07-13] MEDS: Insulin Lispro Mix 75/25 100 units/ml (HumaLog) 10ml SC SCH (08:30)
[2016-07-13] MEDS: Pantoprazole 40 mg EC Tab PO SCH (09:59)
--- NOTE | 2016-07-13 11:00 | CP.PCM.DIS ---
Provider - Provider Date of Admission: 07/11/16 01:14 Attending physician: Dimas Rico MD Primary care physician: Girish Hill MD Time Spent in preparation of Discharge (in minutes): 35 Hospital Course - Lab Results Lab Results: Most Recent Lab Values WBC 4.0 K/uL (4.8-10.8) L 07/12/16 04:00 RBC 3.17 Mil/uL (3.80-5.20) L 07/12/16 04:00 Hgb 11.2 g/dL (12.0-16.0) L 07/12/16 04:00 Hct 33.3 % (34.0-47.0) L 07/12/16 04:00 MCV 105.0 fl (81.0-99.0) H 07/12/16 04:00 MCH 35.4 pg (27.0-31.0) H 07/12/16 04:00 MCHC 33.7 g/dL (33.0-37.0) 07/12/16 04:00 RDW 15.0 % (11.5-14.5) H 07/12/16 04:00 Plt Count 75 K/uL (130-400) L 07/12/16 04:00 MPV 9.6 fl (7.2-11.7) 07/11/16 06:30 Neut % (Auto) 60.3 % (50.0-75.0) 07/11/16 06:30 Lymph % (Auto) 24.3 % (20.0-40.0) 07/11/16 06:30 [place] % (Auto) 13.5 % (0.0-10.0) H 07/11/16 06:30 Eos % (Auto) 1.4 % (0.0-4.0) 07/11/16 06:30 Baso % (Auto) 0.5 % (0.0-2.0) 07/11/16 06:30 Neut # 2.0 K/uL (1.8-7.0) 07/11/16 06:30 Lymph # 0.8 K/uL (1.0-4.3) L 07/11/16 06:30 [place] # 0.4 K/uL (0.0-0.8) 07/11/16 06:30 Eos # 0.0 K/uL (0.0-0.7) 07/11/16 06:30 Baso # 0.0 K/uL (0.0-0.2) 07/11/16 06:30 PT 12.7 SECONDS (9.6-11.2) H 07/12/16 13:30 INR 1.22 (0.92-1.08) H 07/12/16 13:30 APTT 31.6 SECONDS (23.3-32.5) 07/10/16 23:59 Sodium 136 mmol/l (132-148) 07/12/16 05:25 Potassium 4.4 MMOL/L (3.6-5.0) 07/12/16 05:25 Chloride 106 mmol/L (98-107) 07/12/16 05:25 Carbon Dioxide 20 mmol/L (22-30) L 07/12/16 05:25 Anion Gap 14 (10-20) 07/12/16 05:25 BUN 17 mg/dl (7-17) 07/12/16 05:25 Creatinine 0.5 mg/dL (0.7-1.2) L 07/12/16 05:25 Est GFR ( Amer) > 60 07/12/16 05:25 Est GFR (Non-Af Amer) > 60 07/12/16 05:25 POC Glucose (mg/dL) 230 mg/dL (65-110) H 07/13/16 05:30 Random Glucose 132 mg/dL (65-105) H 07/12/16 05:25 Calcium 8.4 mg/dL (8.4-10.2) 07/12/16 05:25 Total Bilirubin 2.1 mg/dl (0.2-1.3) H 07/12/16 13:30 Direct Bilirubin 0.3 mg/ml (0.0-0.4) 07/12/16 13:30 AST 71 U/L (14-36) H 07/12/16 13:30 ALT 53 U/L (9-52) H 07/12/16 13:30 Alkaline Phosphatase 198 U/L (38-126) H 07/12/16 13:30 Ammonia 116 umo/L (11-51) H* 07/11/16 18:30 Total Protein 6.1 G/DL (6.3-8.2) L 07/12/16 13:30 Albumin 2.7 g/dL (3.5-5.0) L 07/12/16 13:30 Globulin 3.5 gm/dL (2.2-3.9) 07/12/16 13:30 Albumin/Globulin Ratio 0.8 (1.0-2.1) L 07/12/16 13:30 Vitamin B12 > 1000 pg/mL (239-931) H 07/11/16 06:30 Folate 15.1 ng/mL 07/11/16 06:30 TSH 3rd Generation 1.74 mIU/ML (0.46-4.68) 07/11/16 06:30 Urine Color Yellow (YELLOW) 07/11/16 06:30 Urine Clarity Clear (Clear) 07/11/16 06:30 Urine pH 6.0 (5.0-8.0) 07/11/16 06:30 Ur Specific [place] 1.010 (1.003-1.030) 07/11/16 06:30 Urine Protein Negative mg/dL (NEGATIVE) 07/11/16 06:30 Urine Glucose (UA) Neg mg/dL (Normal) 07/11/16 06:30 Urine Ketones Negative mg/dL (NEGATIVE) 07/11/16 06:30 Urine Blood Negative (NEGATIVE) 07/11/16 06:30 Urine Nitrate Negative (NEGATIVE) 07/11/16 06:30 Urine Bilirubin Negative (NEGATIVE) 07/11/16 06:30 Urine Urobilinogen 0.2-1.0 mg/dL (0.2-1.0) 07/11/16 06:30 Ur Leukocyte Esterase Trace Li/uL (Negative) 07/11/16 06:30 Urine RBC (Auto) 1 /hpf (0-3) 07/11/16 06:30 Urine Microscopic WBC 3 /hpf (0-5) 07/11/16 06:30 Ur Squamous Epith Cells < 1 /hpf (0-5) 07/11/16 06:30 Urine Bacteria Rare (<OCC) 07/11/16 06:30 Alcohol, Quantitative < 10 mg/dl (0-10) 07/11/16 02:18 Blood Type O POSITIVE 07/10/16 23:59 Antibody Screen Negative 07/10/16 23:59 BBK History Checked Patient has bt 04/08/17 23:59 - Hospital Course Hospital Course: 70 y/o female with a PMHx remarkable for liver cirrhosis, IDDM2, and hypertension was admitted for Hepatic Encephalopathy. During her stay ammonia was found to be 96, so she was started on an increased dose of Lactulose with a goal of 2-3 bowel movements per day. GI was consulted who agreed, and the patient was monitored. After several bowel movements with increased Lactulose administration, the pt returned back to her mental status baseline. She had an uneventful hospital stay and was discharged in stable condition with orders to follow up with Dr. Velarde at the [facility] within a week. Prescriptions: Lactulose 20 mL BID with goals of 2-3 bowel movements per day Discharge Exam - Head Exam Head Exam: ATRAUMATIC, NORMOCEPHALIC - Eye Exam Eye Exam: EOMI Pupil Exam: PERRL - ENT Exam ENT Exam: Mucous Membranes Moist - Respiratory Exam Respiratory Exam: Clear to PA & Lateral, NORMAL BREATHING PATTERN, UNREMARKABLE. absent: Rales, Rhonchi, Wheezes, Respiratory Distress - Cardiovascular Exam Cardiovascular Exam: REGULAR RHYTHM, RRR, +S1, +S2. absent: Gallop, JVD, Rubs - GI/Abdominal Exam GI & Abdominal Exam: Normal Bowel Sounds, Soft, Unremarkable. absent: Distended , Firm, Tenderness - Extremities Exam Extremities exam: normal inspection, pedal pulses present - Neurological Exam Neurological exam: Alert, CN II-XII Intact Additional comments: Alert and oriented to place and person. Family reports this is her baseline mental status - Psychiatric Exam Psychiatric exam: Normal Affect, Normal Mood - Skin Skin Exam: Dry, Intact, Normal Color, Warm Discharge Plan - Follow Up Plan Condition: STABLE Disposition: HOME/ ROUTINE Instructions: Hepatic Encephalopathy (DC), Altered Mental Status (GEN) Additional Instructions: Follow up with Dr. Girish Palmer within 1 week Referrals: Girish Hill MD [Primary Care Provider] -
[2016-07-13 12:34] VITALS: BP 105/66; PULSE 69; RESP 18; TEMP 98.7; O2SAT 99
== END 2016-07-13 14:00 | disposition home or self-care (01) | DRG 205 ==
LOC: H.ER 22:40 → H.ERHOLD 07-11 01:14 → H.TEL 07-11 03:01
PROVIDERS: ADMIT Family Medicine; ATTEND Family Medicine
DX: K72.90 Hepatic failure, unspecified without coma (principal); K74.69 Other cirrhosis of liver; I85.00 Esophageal varices without bleeding; K76.6 Portal hypertension; D69.6 Thrombocytopenia, unspecified; E11.9 Type 2 diabetes mellitus without complications; I10 Essential (primary) hypertension; K31.89 Other diseases of stomach and duodenum; Z79.4 Long term (current) use of insulin

== ENCOUNTER 2016-09-10 04:03 | Inpatient (IN) | payer SELFPAY ==
[2016-09-10 04:22] VITALS: BMI 28.3
[2016-09-10] MEDS ORDERED: Sodium Chloride 0.9% 1,000 ML IV STA (04:29)
[2016-09-10 04:43] LABS: BASO % 0.6 % (0.0-2.0); EOS # 0.1 K/uL (0.0-0.7); EOS % 1.4 % (0.0-4.0); HEMATOCRIT 38.5 % (34.0-47.0); LYMPH # 1.3 K/uL (1.0-4.3); LYMPH % 27.1 % (20.0-40.0); MEAN CELL VOLUME 101.8 fl (81.0-99.0); MEAN CORPUSCULAR HEMOGLOBIN 34.7 pg (27.0-31.0); MEAN CORPUSCULAR HGB CONC 34.1 g/dL (33.0-37.0); MEAN PLATELET VOLUME 9.6 fl (7.2-11.7); MONO # 0.6 K/uL (0.0-0.8); MONO % 13.2 % (0.0-10.0); NEUT # 2.8 K/uL (1.8-7.0); NEUT % 57.7 % (50.0-75.0); RED CELL DISTRIBUTION WIDTH 13.9 % (11.5-14.5); WHITE BLOOD COUNT 4.8 K/uL (4.8-10.8)
[2016-09-10 04:54] LABS: ALB/GLOB RATIO 0.9 (1.0-2.1); ALKALINE PHOSPHATASE 211 U/L (38-126); ALT/SGPT 57 U/L (9-52); AST/SGOT 65 U/L (14-36); BILIRUBIN,TOTAL 1.5 mg/dl (0.2-1.3); BLOOD UREA NITROGEN 17 mg/dl (7-17); CALCIUM 9.9 mg/dL (8.4-10.2); CARBON DIOXIDE 21 mmol/L (22-30); CHLORIDE 104 mmol/L (98-107); GFR AFRICAN-AMERICAN > 60; GLUCOSE,RANDOM 162 mg/dL (65-105); POTASSIUM 4.3 MMOL/L (3.6-5.0); SODIUM 135 mmol/l (132-148); TOTAL PROTEIN 7.7 G/DL (6.3-8.2)
--- NOTE | 2016-09-10 04:58 | ED PDOC ---
HPI: Altered Mental Status Time Seen by Provider: 09/10/16 04:15 Chief Complaint (Nursing): Altered Mental Status Chief Complaint (Provider): Altered Mental Status History Per: Family History/Exam Limitations: Clinical Condition Onset/Duration Of Symptoms: Days (x2), Gradual Current Symptoms Are (Timing): Still Present Description Of Symptoms: Unresponsive Usual Baseline: Alert Oriented Exacerbating Factor(s): Diabetic, Liver Disease Use Of Anticoag/Antiplatlets: Unknown Additional Complaint(s): 71 year old female brought in by family presents to ED with complaints of gradual onset AMS x2 days and has a past medical history of hepatic encephalopathy, liver cirrhosis, and DM. Family states that there has been progessive deterioration of the patient's mental status over the last two days, and that the patient has been nonverbal since yesterday. Patient is awake and unresponsive. Family notes that similar episodes have occurred in the past, but never this severely. Previous AMS was diagnosed as secondary to a high ammonia level. Patient is compliant with her lactulose. PCP: Iman Past Medical History Reviewed: Historical Data, Nursing Documentation, Vital Signs Vital Signs: Last Vital Signs Temp Pulse 74 09/10/16 04:21 Resp 15 09/10/16 04:21 BP 142/74 09/10/16 04:21 Pulse Ox 98 09/10/16 04:21 - Medical History PMH: Diabetes, HTN, Hypercholesterolemia, Osteoporosis, TIA Denies: Chronic Kidney Disease Other PMH: Hepatic encephalopathy, liver cirrhosis - Surgical History Surgical History: Cholecystectomy Denies: Pacemaker - Family History Family History: States: No Known Family Hx - Living Arrangements Living Arrangements: With Family - Home Medications Home Medications: Ambulatory Orders Medication Instructions Recorded Gabapentin [Neurontin] 300 mg PO DAILY 06/05/16 Furosemide [Lasix] 40 mg PO DAILY 07/11/16 Omeprazole 40 mg PO DAILY 07/11/16 Spironolactone [Aldactone] 50 mg PO DAILY 07/11/16 Lactulose [Enulose] 20 gm PO TID #0 udc 07/13/16 Insulin Aspar/Insulin N 70/30 20 ml SC QPM 09/10/16 [Novolog MIX 70/30-U/ML 3ML] Insulin Aspar/Insulin N 70/30 25 ml SC QAM 09/10/16 [Novolog MIX 70/30-U/ML 3ML] - Allergies Allergies/Adverse Reactions: Allergies Allergy/AdvReac Type Severity Reaction Status Date / Time No Known Allergies Allergy Verified 09/10/16 04:21 Review of Systems Review Of Systems: ROS cannot be obtained secondary to pt's inabilty to answer questions. Neurological: Positive for: Altered Mental Status Physical Exam - Reviewed Nursing Documentation Reviewed: Yes Vital Signs Reviewed: Yes - Physical Exam Appears: Positive for: Non-toxic, No Acute Distress Skin: Positive for: Normal Color, Warm, Dry Eye Exam: Positive for: Normal appearance ENT: Negative for: Normal ENT Inspection (dry mucous membranes) Cardiovascular/Chest: Positive for: Regular Rate, Rhythm. Negative for: Murmur Respiratory: Positive for: Normal Breath Sounds. Negative for: Respiratory Distress Gastrointestinal/Abdominal: Positive for: Normal Exam, Soft. Negative for: Tenderness Extremity: Positive for: Normal ROM (Moves all extremities). Negative for: Deformity Neurologic/Psych: Positive for: Other (Nonverbal, doesn't follow commands). Negative for: Alert (Somnolent), Oriented, Motor/Sensory Deficits - Laboratory Results Result Diagrams: 09/10/16 08:14 09/10/16 08:14 - ECG O2 Sat by Pulse Oximetry: 98 (RA) Pulse Ox Interpretation: Normal Medical Decision Making Medical Decision Makin Initial impression: AMS in setting of known hepatic encephalopathy and liver cirrhosis Initial plan: * Ammonia * Labs * PTT/PT * CXR * NS IV * Accucheck * UA [id number] Labs reviewed: significant for marked elevation in ammonia level (176) Spoke to Dr. Flores about admitting the patient to med/surg Dx: hyperammonemia, hepatic encephalopathy Scribe Attestation: Documented by Tasha Leal acting as a scribe for Kofi Richards MD. Scribe Attestation: All medical record entries made by the Scribe were at my direction and personally dictated by me. I have reviewed the chart and agree that the record accurately reflects my personal performance of the history, physical exam, medical decision making, and the department course for this patient. I have also personally directed, reviewed, and agree with the discharge instructions and disposition. Disposition - Clinical Impression Clinical Impression: Cirrhosis, Hepatic encephalopathy, Hyperammonemia - Patient ED Disposition Is Patient to be Admitted: Yes Doctor Will See Patient In The: Hospital - Disposition Disposition Time: 04:37 Condition: FAIR - Pt Status Changed To: Hospital Disposition Of: Inpatient (Med/Surg) - Admit Certification Admit to Inpatient:: After my assessment, the patient will require hospitalization for at least two midnights. This is because of the severity of symptoms shown, intensity of services needed, and/or the medical risk in this patient being treated as an outpatient.
[2016-09-10 05:15] LABS: PARTIAL THROMBOPLASTIN TIME 33.9 Seconds (25.6-37.1)
--- NOTE | 2016-09-10 05:35 | CP.PCM.HP ---
History of Present Illness - History of Present Illness History of Present Illness: CC: AMS 71F radha in by family for worsening AMS since yesterday with associated restlessness and daughter reports urinary frequency. However, family denies any evidence of fevers, chills, nausea, vomiting, and normal 2-3 BM/day. Family denies changes in medications, denies missed medications, denies recent dietary changes. PMH: Liver cirrhosis, HLD, DM (A1C-5.5), cataracts, osteoporosis, TIA, Dementia PSH: Cholecystectomy, Hysterectomy ALL: NKDA MIRLANDE: See Med Rec Present on Admission - Present on Admission Any Indicators Present on Admission: No Review of Systems - Review of Systems Systems not reviewed;Unavailable: Altered Mental Status Past Patient History - Past Medical History & Family History Past Medical History?: Yes - Past Social History Smoking Status: Never Smoked - CARDIAC Hx Cardiac Disorders: Yes - PULMONARY Hx Respiratory Disorders: No - NEUROLOGICAL Hx Transient Ischemic Attacks (TIA): Yes - HEENT Hx HEENT Problems: No - RENAL Hx Chronic Kidney Disease: No - ENDOCRINE/METABOLIC Hx Endocrine Disorders: Yes - HEMATOLOGICAL/ONCOLOGICAL Hx Blood Disorders: No - INTEGUMENTARY Hx Dermatological Problems: No - MUSCULOSKELETAL/RHEUMATOLOGICAL Hx Osteoporosis: Yes - GASTROINTESTINAL Other/Comment: Liver Cirrhosis - GENITOURINARY/GYNECOLOGICAL Hx Genitourinary Disorders: No - PSYCHIATRIC Hx Psychophysiologic Disorder: No Hx Substance Use: No - SURGICAL HISTORY Hx Cholecystectomy: Yes - ANESTHESIA Hx Anesthesia: Yes Hx Anesthesia Reactions: No Hx Malignant Hyperthermia: No Meds Allergies/Adverse Reactions: Allergies Allergy/AdvReac Type Severity Reaction Status Date / Time No Known Allergies Allergy Verified 09/10/16 04:21 Physical Exam - Constitutional Appears: Non-toxic, No Acute Distress - Head Exam Head Exam: ATRAUMATIC, NORMAL INSPECTION - Eye Exam Eye Exam: EOMI, PERRL - ENT Exam ENT Exam: Mucous Membranes Moist, Normal Exam - Neck Exam Neck exam: Positive for: Normal Inspection. Negative for: Lymphadenopathy - Respiratory Exam Respiratory Exam: Clear to Auscultation Bilateral, NORMAL BREATHING PATTERN. absent: Rales, Wheezes - Cardiovascular Exam Cardiovascular Exam: REGULAR RHYTHM. absent: JVD - GI/Abdominal Exam GI & Abdominal Exam: Normal Bowel Sounds, Soft. absent: Tenderness - Extremities Exam Extremities exam: Positive for: full ROM, normal capillary refill, pedal pulses present. Negative for: pedal edema, tenderness - Skin Skin Exam: Normal Color, Warm Results - Vital Signs Recent Vital Signs: Last Vital Signs Temp Pulse 72 09/10/16 05:23 Resp 18 09/10/16 05:23 BP 142/74 09/10/16 05:23 Pulse Ox 98 09/10/16 05:08 - Labs Result Diagrams: 09/10/16 04:33 09/10/16 04:33 Assessment & Plan (1) Hepatic encephalopathy Assessment and Plan: Pt with worsening AMS x1 day without change in medications or #BM/day. Pt s/p BM x6 in ED after Neomycin pt still altered at time of exam. - Admit to Med/Surg - GI Consult (Dr Alejandre): f/u recs - Resume Lactulose 20gm, PO, TID - Repeat Ammonia @0900 Status: Acute (2) DVT prophylaxis Assessment and Plan: Lovenox 40mg, SC, Daily Status: Acute (3) Cirrhosis Assessment and Plan: Chronic, last GI visit 08/09 and at that time lasix and aldactone to be discontinued, but these medications restarted at [facility] visit 08/28. Current MELD- 13 - Admit to Med/Surg - GI Consult (Dr Alejandre) - HOLD Lasix at this time as per last GI note - HOLD Spironolactone/Aldactone at this time as per last GI note - Resume Lactulose 20gm, PO, BID Status: Chronic (4) Diabetes Assessment and Plan: Chronic. A1C(03/19/16)- 5.5 - Accu-checks, ACHS - Novolin 70/30 25U, SC, twice daily - SSI moderate, ACTID - Hypoglycemia Bundle - Hemoglobin A1C Status: Chronic
[2016-09-10] MEDS ORDERED: Dextrose 50% SYRINGE Inj (50 ml) IV PRN (05:42)
[2016-09-10] MEDS ORDERED: Glucagon Recombinant 1 mg Inj IM PRN (05:42)
[2016-09-10] MEDS: Insulin Lispro (humaLOG) 100 Units/ml Inj SC SCH ×3 (07:30→17:42)
--- NOTE | 2016-09-10 08:12 | CP.PCM.CON ---
<Richard Edmond - Last Filed: 09/10/16 11:31> History of Present Illness - History of Present Illness History of Present Illness: PGY4 GI Fellow Consult Note Patient is a 73yo female with PMHx significant for cryptogenic cirrhosis complicated by recurrent episodes of HE and prior development of abdominal ascites, who presented to the ED for altered mentation. Currently, the patient is somnolent, arousable but minimally conversant and quite confused, unable to answer any questions appropriately. Family at bedside state that the patient was in her normal state of health until last night when she became more confused at around dinner time. This progressed to the point where this morning she is very somnolent and unable to participate in conversation. Family state that she had absolutely no complaints leading up to admission. Was having 2 BM per day which has increased since last night with 7-8 loose stool since arrival. No overt GI bleeding per family. No fever, chills, sleep/wake alteration noted prior to arrival. Patient had been compliant with medications. PMHx: See HPI PSHx: Hysterectomy, cholecystectomy FHx: No family history of GI malignancy or liver disease Social: Denies tobacco, EtOH or illicit drug use Endo: 05/06/16 - small esophageal varices, portal hypertensive gastropathy Review of Systems - Review of Systems Systems not reviewed;Unavailable: Acuity of Condition Past Patient History - Past Medical History & Family History Past Medical History?: Yes - Past Social History Smoking Status: Never Smoked - CARDIAC Hx Cardiac Disorders: Yes - PULMONARY Hx Respiratory Disorders: No - NEUROLOGICAL Hx Transient Ischemic Attacks (TIA): Yes - HEENT Hx HEENT Problems: No - RENAL Hx Chronic Kidney Disease: No - ENDOCRINE/METABOLIC Hx Endocrine Disorders: Yes - HEMATOLOGICAL/ONCOLOGICAL Hx Blood Disorders: No - INTEGUMENTARY Hx Dermatological Problems: No - MUSCULOSKELETAL/RHEUMATOLOGICAL Hx Osteoporosis: Yes - GASTROINTESTINAL Other/Comment: Liver Cirrhosis - GENITOURINARY/GYNECOLOGICAL Hx Genitourinary Disorders: No - PSYCHIATRIC Hx Psychophysiologic Disorder: No Hx Substance Use: No - SURGICAL HISTORY Hx Cholecystectomy: Yes - ANESTHESIA Hx Anesthesia: Yes Hx Anesthesia Reactions: No Hx Malignant Hyperthermia: No Meds Allergies/Adverse Reactions: Allergies Allergy/AdvReac Type Severity Reaction Status Date / Time No Known Allergies Allergy Verified 09/10/16 04:21 - Medications Medications: Current Medications Dextrose (Dextrose 50% Inj) 0 ml IV STAT PRN; Protocol PRN Reason: Hyglycemia Protocol Dextrose (Glutose 15) 0 gm PO ONCE PRN; Protocol PRN Reason: Hypoglycemia Protocol Enoxaparin Sodium (Lovenox) 40 mg SC DAILY [facility] PRN Reason: Protocol Furosemide (Lasix) 40 mg PO DAILY [facility] Gabapentin (Neurontin) 300 mg PO DAILY [facility] Glucagon (Glucagen Diagnostic Kit) 0 mg IM STAT PRN; Protocol PRN Reason: Hypoglycemia Protocol Sodium Chloride (Sodium Chloride 0.9%) 1,000 mls @ 125 mls/hr IV .Q8H STA Stop: 09/10/16 12:28 Last Admin: 09/10/16 04:43 Dose: 125 mls/hr Insulin Human Lispro (Humalog) 0 units SC ACTID [facility] PRN Reason: Protocol Insulin Lispro Protam/Lispro Human (Humalog Mix 75/25) 25 units SC QAM [facility] Insulin Lispro Protam/Lispro Human (Humalog Mix 75/25) 25 units SC QPM [facility] Lactulose (Enulose) 20 gm PO BID [facility] Pantoprazole Sodium (Protonix Ec Tab) 40 mg PO DAILY [facility] Spironolactone (Aldactone) 50 mg PO DAILY [facility] Physical Exam - Constitutional Appears: Toxic, Confused, Chronically Ill - Eye Exam Eye Exam: PERRL - ENT Exam ENT Exam: Mucous Membranes Dry - Respiratory Exam Respiratory Exam: Clear to Auscultation Bilateral. absent: Rales, Rhonchi, Wheezes - Cardiovascular Exam Cardiovascular Exam: RRR, +S1, +S2 - GI/Abdominal Exam GI & Abdominal Exam: Normal Bowel Sounds, Soft. absent: Distended, Firm, Guarding, Organomegaly, Rigid, Tenderness - Extremities Exam Extremities exam: Positive for: normal inspection. Negative for: pedal edema - Neurological Exam Neurological exam: Altered - Skin Skin Exam: Dry, Warm Results - Vital Signs Recent Vital Signs: Last Vital Signs Temp 97.9 F 09/10/16 06:37 Pulse 86 09/10/16 06:37 Resp 20 09/10/16 06:37 BP 141/65 09/10/16 06:37 Pulse Ox 98 09/10/16 06:37 - Labs Result Diagrams: 09/10/16 08:14 09/10/16 08:14 Assessment & Plan - Assessment and Plan (Free Text) Assessment: Patient is a 73yo female with PMHx significant for cryptogenic cirrhosis complicated by recurrent episodes of HE and prior development of abdominal ascites, who presented to the ED for altered mentation. -Altered mental status; suspect Stage 3 Hepatic encephalopathy, must rule out underlying etiology -Diabetes mellitus Plan: -Unclear etiology of patient's acute decompensation; suspect underlying HE given history -Continue lactulose therapy and add Rifaximin 550mg PO BID -Check U/A, Urine culture and blood culture to rule out underlying cause -Stool culture if diarrhea persists -Titrate Lactulose to 2-3 BM/day; hold now given multiple BM and resume later today - would give rectally if cannot tolerate PO -Diet as tolerated; low sodium -D/C IVF in this cirrhotic patient unless she further decompensates as this can cause ascitic buildup and cause rupture of varices; OK with holding diuresis for now -Check U/S abdomen and r/o underlying ascites; paracentesis if present -IF mentation does not improve with therapy; consider more advanced imaging modalities (i.e. CT head) - Date & Time Date: 09/10/16 Time: 08:45 <Megan Alejandre MD - Last Filed: 09/10/16 15:34> Meds - Medications Medications: Current Medications Dextrose (Dextrose 50% Inj) 0 ml IV STAT PRN; Protocol PRN Reason: Hyglycemia Protocol Dextrose (Glutose 15) 0 gm PO ONCE PRN; Protocol PRN Reason: Hypoglycemia Protocol Enoxaparin Sodium (Lovenox) 40 mg SC DAILY [facility] PRN Reason: Protocol Last Admin: 09/10/16 12:50 Dose: 40 mg Furosemide (Lasix) 40 mg PO DAILY [facility] Gabapentin (Neurontin) 300 mg PO DAILY [facility] Last Admin: 09/10/16 10:45 Dose: Not Given Glucagon (Glucagen Diagnostic Kit) 0 mg IM STAT PRN; Protocol PRN Reason: Hypoglycemia Protocol Insulin Human Lispro (Humalog) 0 units SC ACTID [facility] PRN Reason: Protocol Last Admin: 09/10/16 07:30 Dose: Not Given Insulin Lispro Protam/Lispro Human (Humalog Mix 75/25) 25 units SC QAM [facility] Last Admin: 09/10/16 09:00 Dose: Not Given Insulin Lispro Protam/Lispro Human (Humalog Mix 75/25) 25 units SC QPM [facility] Lactulose (Enulose) 20 gm PO BID [facility] Last Admin: 09/10/16 14:33 Dose: 20 gm Rifaximin (Xifaxan) 550 mg PO BID [facility] Last Admin: 09/10/16 10:45 Dose: Not Given Spironolactone (Aldactone) 50 mg PO DAILY [facility] Results - Vital Signs Recent Vital Signs: Last Vital Signs Temp 97.8 F 09/10/16 08:13 Pulse 80 09/10/16 10:14 Resp 18 09/10/16 10:14 BP 144/77 09/10/16 09:00 Pulse Ox 98 09/10/16 09:00 - Labs Result Diagrams: 09/10/16 08:14 09/10/16 08:14 Labs: Laboratory Results - last 24 hr 09/10/16 09/10/16 09/10/16 08:14 08:14 08:14 WBC 3.6 L RBC 3.57 L Hgb 12.5 Hct 36.5 MCV 102.3 H MCH 35.1 H MCHC 34.3 RDW 14.0 Plt Count 88 L MPV 10.3 Neut % (Auto) 74.8 Lymph % (Auto) 12.8 L [place] % (Auto) 11.2 H Eos % (Auto) 0.6 Baso % (Auto) 0.6 Neut # 2.7 Lymph # 0.5 L [place] # 0.4 Eos # 0.0 Baso # 0.0 Sodium 135 Potassium 4.6 Chloride 106 Carbon Dioxide 21 L Anion Gap 13 BUN 17 Creatinine 0.6 L Est GFR ( Amer) > 60 Est GFR (Non-Af Amer) > 60 POC Glucose (mg/dL) Random Glucose 193 H Hemoglobin A1c Calcium 9.7 Ammonia 78 H D Urine Color Urine Clarity Urine pH Ur Specific [place] Urine Protein Urine Glucose (UA) Urine Ketones Urine Blood Urine Nitrate Urine Bilirubin Urine Urobilinogen Ur Leukocyte Esterase Urine RBC (Auto) Urine Microscopic WBC 09/10/16 09/10/16 09/10/16 08:14 08:44 12:23 WBC RBC Hgb Hct MCV MCH MCHC RDW Plt Count MPV Neut % (Auto) Lymph % (Auto) [place] % (Auto) Eos % (Auto) Baso % (Auto) Neut # Lymph # [place] # Eos # Baso # Sodium Potassium Chloride Carbon Dioxide Anion Gap BUN Creatinine Est GFR ( Amer) Est GFR (Non-Af Amer) POC Glucose (mg/dL) 199 H 165 H Random Glucose Hemoglobin A1c 6.5 Calcium Ammonia Urine Color Urine Clarity Urine pH Ur Specific [place] Urine Protein Urine Glucose (UA) Urine Ketones Urine Blood Urine Nitrate Urine Bilirubin Urine Urobilinogen Ur Leukocyte Esterase Urine RBC (Auto) Urine Microscopic WBC 09/10/16 12:27 WBC RBC Hgb Hct MCV MCH MCHC RDW Plt Count MPV Neut % (Auto) Lymph % (Auto) [place] % (Auto) Eos % (Auto) Baso % (Auto) Neut # Lymph # [place] # Eos # Baso # Sodium Potassium Chloride Carbon Dioxide Anion Gap BUN Creatinine Est GFR ( Amer) Est GFR (Non-Af Amer) POC Glucose (mg/dL) Random Glucose Hemoglobin A1c Calcium Ammonia Urine Color Yellow Urine Clarity Clear Urine pH 8.0 Ur Specific [place] 1.011 Urine Protein Negative Urine Glucose (UA) Neg Urine Ketones Negative Urine Blood Negative Urine Nitrate Negative Urine Bilirubin Negative Urine Urobilinogen 0.2-1.0 Ur Leukocyte Esterase Neg Urine RBC (Auto) 2 Urine Microscopic WBC 1 Attending/Attestation - Attestation I have personally seen and examined this patient.: Yes I have fully participated in the care of the patient.: Yes I have reviewed all pertinent clinical information: Yes Notes (Text): 09/10/16 15:32 This is a 73yo female with PMHx significant for cryptogenic cirrhosis complicated by recurrent episodes of HE and prior development of abdominal ascites, who presented to the ED for altered mentation. Needs lactulose and sepsis work up for unknown etiology of patients decompensation. Titrate lactulose to 2 bowel movements per day. Send urine and blood cultures to rule out infection. supplement electrolytes. Low sodium diet as tolerated
[2016-09-10 08:31] LABS: BASO % 0.6 % (0.0-2.0); EOS % 0.6 % (0.0-4.0); HEMATOCRIT 36.5 % (34.0-47.0); LYMPH # 0.5 K/uL (1.0-4.3); LYMPH % 12.8 % (20.0-40.0); MEAN CELL VOLUME 102.3 fl (81.0-99.0); MEAN CORPUSCULAR HEMOGLOBIN 35.1 pg (27.0-31.0); MEAN CORPUSCULAR HGB CONC 34.3 g/dL (33.0-37.0); MEAN PLATELET VOLUME 10.3 fl (7.2-11.7); MONO # 0.4 K/uL (0.0-0.8); MONO % 11.2 % (0.0-10.0); NEUT # 2.7 K/uL (1.8-7.0); NEUT % 74.8 % (50.0-75.0); NRBC % 0.1 % (0.0-0.0); WHITE BLOOD COUNT 3.6 K/uL (4.8-10.8)
[2016-09-10 08:38] LABS: BLOOD UREA NITROGEN 17 mg/dl (7-17); CALCIUM 9.7 mg/dL (8.4-10.2); CARBON DIOXIDE 21 mmol/L (22-30); CHLORIDE 106 mmol/L (98-107); GFR AFRICAN-AMERICAN > 60; GLUCOSE,RANDOM 193 mg/dL (65-105); POTASSIUM 4.6 MMOL/L (3.6-5.0); SODIUM 135 mmol/l (132-148)
[2016-09-10] MEDS: Insulin Lispro Mix 75/25 100 units/ml (HumaLog) 10ml SC SCH ×2 (09:00→17:43)
[2016-09-10] MEDS ORDERED: Pantoprazole 40 mg EC Tab PO SCH ×2 (09:00)
--- NOTE | 2016-09-10 12:01 | US ---
HISTORY: r/o ascites COMPARISON: None. TECHNIQUE: Sonographic evaluation of the right upper quadrant of the abdomen. FINDINGS: LIVER: Measures 11.3 cm in length. Hepatopedal blood flow. Fatty infiltration manifest ultrasonographically as increased echogenicity of the liver parenchyma. No mass. No intrahepatic bile duct dilatation. GALLBLADDER: Status post cholecystectomy. No abnormality is seen in the gallbladder fossa. COMMON BILE DUCT: Measures 3.3 mm. No stones. No dilatation. PANCREAS: Unremarkable as visualized. No mass. No ductal dilatation. RIGHT KIDNEY: Measures 4.6 x 9.5 cm in length. Normal echogenicity. No calculus, mass, or hydronephrosis. AORTA: No aneurysmal dilatation. IVC: Unremarkable. OTHER FINDINGS: None . IMPRESSION: No significant or acute findings to account for/ related to the clinical presentation. Specifically no evidence of ascites.
[2016-09-10] MEDS ORDERED: Lactulose 10 gm/15 ml (Rectal Use) PR ONE (12:26)
[2016-09-10 12:39] LABS: RBC URINE 2 /hpf (0-3); URINE BILIRUBIN NEGATIVE (NEGATIVE); URINE BLOOD NEGATIVE (NEGATIVE); URINE COLOR YELLOW (YELLOW); URINE GLUCOSE (UA) NEG (Normal); URINE KETONE NEGATIVE (NEGATIVE); URINE LEUKOCYTE ESTERASE NEG Leu/uL (Negative); URINE PROTEIN NEGATIVE (NEGATIVE); URINE UROBILINOGEN 0.2-1.0 mg/dL (0.2-1.0); WBC URINE 1 /hpf (0-5)
[2016-09-10] MEDS: Enoxaparin 40 mg Syringe SC SCH (12:50)
--- NOTE | 2016-09-10 13:12 | RAD ---
HISTORY: admit COMPARISON: 03/19/2016. FINDINGS: LUNGS: No active pulmonary disease. PLEURA: No significant pleural effusion identified, no pneumothorax apparent. CARDIOVASCULAR: No radiographic findings to suggest acute or significant cardiovascular disease. OSSEOUS STRUCTURES: No significant abnormalities. VISUALIZED UPPER ABDOMEN: Normal. OTHER FINDINGS: None. IMPRESSION: No active disease. No significant interval change compared to the prior examination(s).
--- NOTE | 2016-09-10 14:38 | CARD ---
APPROVED REPORT EKG Measurement Heart [id number] <Conclusion> Normal sinus rhythm Normal ECG
--- NOTE | 2016-09-10 17:55 | CT ---
PROCEDURE: CT HEAD WITHOUT CONTRAST. HISTORY: AMS COMPARISON: None available. TECHNIQUE: Axial computed tomography images were obtained through the head/brain without intravenous contrast. Radiation dose: Total exam DLP = 789.50 mGy-cm. This CT exam was performed using one or more of the following dose reduction techniques: Automated exposure control, adjustment of the mA and/or kV according to patient size, and/or use of iterative reconstruction technique. FINDINGS: HEMORRHAGE: No intracranial hemorrhage. BRAIN: There are scattered coarse calcifications in the right frontal, right parietal and left parietal lobes. There is no mass, mass effect or abnormal extra-axial fluid collection. There is no territorial infarction. Key-white matter differentiation is preserved. VENTRICLES: There is mild age-related global parenchymal volume loss and proportionate enlargement of the ventricles and cortical sulci. CALVARIUM: There is no calvarial fracture or extracranial soft tissue swelling. PARANASAL SINUSES: Predominantly clear. MASTOID AIR CELLS: Predominantly clear. OTHER FINDINGS: None. IMPRESSION: No acute intracranial abnormality. 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
--- NOTE | 2016-09-10 18:31 | CP.PCM.PCO ---
Physician Communication Note - Physician Communication Note Physician Communication Note: addendum Addendum Addendum: 09/10/16 17:41 S: Patient seen and examined this AM. Somnolent, arousable however unable to respond to questions appropriately or follow commands. Partner bedside, unsure of etiology of patients acute decompensation. Patient was having increased bowel movements since yesterday but denies patient had fever, cough or increased urination. Patient reevaluated around 13:00 with family medicine team and Dr. Rico. Noted to be more alert, following commands, however unable to respond to questions appropriately, and appears still confused. Tolerated PO intake of liquids. 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 Etiology of patients acute decompensation is unknown. Reevaluation of the patient revealed she was more alert and able to follow commands, however patient appears to still be confused. 1. Ctyptogenic cirrhosis with AMS likely secondary to grade 3 hepatic encephalopathy -underlying infection must be ruled out -CT head ordered due to patients AMS; report is pending -swallow eval -will d/c lactulose UT given that patient is now tolerating PO intake -of note, as per ecw: patient restarted on lasix and spironolactone at recent outpatient visit, likely due to ascites and pedal edema, will hold for now. -follow up labs in AM: ammonia As per GI recommendations -lactulose 30ml BID, titrate to 2 BM per day -start rifaximin 550mg PO BID -low sodium diet -u/s abdomen: no ascites 2. Type 2 DM with neuropathy - controlled hga1c: 6.5% -patient on insulin, metformin discontinued due to liver cirrhosis. (Patient uses Novolin 70/30, 25 units BID) -humalog 75/25, 25units sc BID -ISS low dose coverage -accuchecks -gabapentin 300mg PO daily for neuropathy 3. DVT prophylaxis - lovenox 40mg sc 4. Leukopenia -chronic, likely secondary to liver cirrhosis -monitor 5. thrombocytopenia -likely secondary to liver cirrhosis -monitor 09/10/16 18:32
[2016-09-11 08:07] LABS: EOS # 0.1 K/uL (0.0-0.7); HEMATOCRIT 33.8 % (34.0-47.0); LYMPH # 1.1 K/uL (1.0-4.3); LYMPH % 32.2 % (20.0-40.0); MEAN CELL VOLUME 103.3 fl (81.0-99.0); MEAN CORPUSCULAR HEMOGLOBIN 35.1 pg (27.0-31.0); MEAN PLATELET VOLUME 9.8 fl (7.2-11.7); MONO # 0.4 K/uL (0.0-0.8); MONO % 12.8 % (0.0-10.0); NEUT # 1.7 K/uL (1.8-7.0); NRBC % 0.1 % (0.0-0.0); RED CELL DISTRIBUTION WIDTH 14.4 % (11.5-14.5); WHITE BLOOD COUNT 3.3 K/uL (4.8-10.8)
[2016-09-11 08:25] LABS: ALB/GLOB RATIO 0.8 (1.0-2.1); ALKALINE PHOSPHATASE 164 U/L (38-126); ALT/SGPT 46 U/L (9-52); AST/SGOT 50 U/L (14-36); BILIRUBIN,TOTAL 1.2 mg/dl (0.2-1.3); BLOOD UREA NITROGEN 17 mg/dl (7-17); CALCIUM 8.8 mg/dL (8.4-10.2); CARBON DIOXIDE 20 mmol/L (22-30); CHLORIDE 110 mmol/L (98-107); GFR AFRICAN-AMERICAN > 60; GLUCOSE,RANDOM 115 mg/dL (65-105); POTASSIUM 4.2 MMOL/L (3.6-5.0); SODIUM 136 mmol/l (132-148); TOTAL PROTEIN 6.4 G/DL (6.3-8.2)
--- NOTE | 2016-09-11 08:41 | CP.PCM.PN ---
Subjective - Date & Time of Evaluation Date of Evaluation: 09/11/16 Time of Evaluation: 08:36 - Subjective Subjective: Patient seen and examined, resting comfortably in bed receiving assistance with breakfast from family member at bedside. No acute events overnight. She denies abdominal pain, nausea, vomiting, diarrhea, fever/chills. As per vocational nursing instructor, no bowel movements overnight. Review of vitals from today are normal. 12 point review of systems performed, negative aside from mentioned above. Objective - Vital Signs/Intake and Output Vital Signs (last 24 hours): Temp Pulse Resp BP Pulse Ox 98.2 F 57 L 18 115/68 99 09/11/16 07:37 09/11/16 07:37 09/11/16 07:37 09/11/16 07:37 09/11/16 07:37 - Medications Medications: Current Medications Dextrose (Dextrose 50% Inj) 0 ml IV STAT PRN; Protocol PRN Reason: Hyglycemia Protocol Dextrose (Glutose 15) 0 gm PO ONCE PRN; Protocol PRN Reason: Hypoglycemia Protocol Enoxaparin Sodium (Lovenox) 40 mg SC DAILY [facility] PRN Reason: Protocol Last Admin: 09/10/16 12:50 Dose: 40 mg Furosemide (Lasix) 40 mg PO DAILY [facility] Gabapentin (Neurontin) 300 mg PO DAILY [facility] Last Admin: 09/10/16 10:45 Dose: Not Given Glucagon (Glucagen Diagnostic Kit) 0 mg IM STAT PRN; Protocol PRN Reason: Hypoglycemia Protocol Insulin Human Lispro (Humalog) 0 units SC ACTID [facility] PRN Reason: Protocol Last Admin: 09/10/16 17:42 Dose: 3 u Insulin Lispro Protam/Lispro Human (Humalog Mix 75/25) 25 units SC QAM [facility] Last Admin: 09/10/16 09:00 Dose: Not Given Insulin Lispro Protam/Lispro Human (Humalog Mix 75/25) 25 units SC QPM [facility] Last Admin: 09/10/16 17:43 Dose: 25 units Lactulose (Enulose) 20 gm PO BID [facility] Last Admin: 09/10/16 17:51 Dose: 20 gm Rifaximin (Xifaxan) 550 mg PO BID [facility] Last Admin: 09/10/16 17:46 Dose: 550 mg Spironolactone (Aldactone) 50 mg PO DAILY [facility] - Labs Labs: 09/11/16 06:00 06/10/17 06:00 PT 14.2 Seconds (9.8-13.1) H 09/10/16 04:33 INR 1.3 (0.9-1.2) H 09/10/16 04:33 APTT 33.9 Seconds (25.6-37.1) 09/10/16 04:33 - Constitutional Appears: Non-toxic, No Acute Distress - Head Exam Head Exam: NORMAL INSPECTION - Eye Exam Eye Exam: EOMI, Normal appearance - ENT Exam ENT Exam: Mucous Membranes Moist - Respiratory Exam Respiratory Exam: Clear to Ausculation Bilateral - Cardiovascular Exam Cardiovascular Exam: REGULAR RHYTHM, +S1, +S2 - GI/Abdominal Exam GI & Abdominal Exam: Soft, Normal Bowel Sounds Additional comments: non tender to palpation in four quadrants - Extremities Exam Extremities Exam: Normal Inspection - Skin Skin Exam: Dry, Intact, Normal Color, Warm Assessment and Plan - Assessment and Plan (Free Text) Assessment: Cryptogenic cirrhosis Altered mental status - resolved Abdominal US reviewed by me showing no presence of ascites Plan: - Low sodium diet as tolerated - Continue with lactulose and xifaxan therapy, stressed importance to patient/ family regarding medication compliance - Diuretic therapy on hold given absence of ascites - LFTs stable, continue to monitor - Investigate alternative causes of AMS, awaiting blood/urine cultures - No ongoing GI issues, will sign off case. Suggest outpatient follow up in liver clinic. Please reconsult as necessary, thank you.
--- NOTE | 2016-09-11 08:43 | CP.PCM.PN ---
Subjective - Date & Time of Evaluation Date of Evaluation: 09/11/16 Time of Evaluation: 10:00 - Subjective Subjective: No acute events overnight. Patient afebrile. Patient seen and examined bedside. She is alert, oriented, responding to questions appropriately. 1 BM this AM. She is tolerating her regular diet and feels better. No complaints at the time of visit. Plan of care discussed with patient and partner, that is bedside. Agree with plan. Objective - Vital Signs/Intake and Output Vital Signs (last 24 hours): Temp Pulse Resp BP Pulse Ox 98.2 F 57 L 18 115/68 99 09/11/16 07:37 09/11/16 07:37 09/11/16 07:37 09/11/16 07:37 09/11/16 07:37 - Medications Medications: Current Medications Dextrose (Dextrose 50% Inj) 0 ml IV STAT PRN; Protocol PRN Reason: Hyglycemia Protocol Dextrose (Glutose 15) 0 gm PO ONCE PRN; Protocol PRN Reason: Hypoglycemia Protocol Enoxaparin Sodium (Lovenox) 40 mg SC DAILY [facility] PRN Reason: Protocol Last Admin: 09/10/16 12:50 Dose: 40 mg Furosemide (Lasix) 40 mg PO DAILY [facility] Gabapentin (Neurontin) 300 mg PO DAILY [facility] Last Admin: 09/10/16 10:45 Dose: Not Given Glucagon (Glucagen Diagnostic Kit) 0 mg IM STAT PRN; Protocol PRN Reason: Hypoglycemia Protocol Insulin Human Lispro (Humalog) 0 units SC ACTID [facility] PRN Reason: Protocol Last Admin: 09/10/16 17:42 Dose: 3 u Insulin Lispro Protam/Lispro Human (Humalog Mix 75/25) 25 units SC QAM [facility] Last Admin: 09/10/16 09:00 Dose: Not Given Insulin Lispro Protam/Lispro Human (Humalog Mix 75/25) 25 units SC QPM [facility] Last Admin: 09/10/16 17:43 Dose: 25 units Lactulose (Enulose) 20 gm PO BID [facility] Last Admin: 09/10/16 17:51 Dose: 20 gm Rifaximin (Xifaxan) 550 mg PO BID [facility] Last Admin: 09/10/16 17:46 Dose: 550 mg Spironolactone (Aldactone) 50 mg PO DAILY [facility] - Labs Labs: 09/11/16 06:00 09/11/16 06:00 PT 14.2 Seconds (9.8-13.1) H 09/10/16 04:33 INR 1.3 (0.9-1.2) H 09/10/16 04:33 APTT 33.9 Seconds (25.6-37.1) 09/10/16 04:33 - Constitutional Appears: Non-toxic, No Acute Distress - Head Exam Head Exam: NORMAL INSPECTION, NORMOCEPHALIC - Eye Exam Pupil Exam: NORMAL ACCOMODATION - Respiratory Exam Respiratory Exam: Clear to Ausculation Bilateral, NORMAL BREATHING PATTERN - GI/Abdominal Exam GI & Abdominal Exam: Soft, Normal Bowel Sounds. 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 Etiology of patients acute decompensation is unknown, blood and urine cultures were obtained, prelim reports are negative. 1. Cryptogenic cirrhosis -AMS resolved -likely secondary to hepatic encephalopathy -underlying infection must be ruled out: blood and urine cultures pending final reports. prelim reports are negative. -cdiff pending -CT head: reviewed. -of note, as per ecw: patient restarted on lasix and spironolactone at recent outpatient visit, likely due to ascites and pedal edema, will continue to hold -ammonia trending down: 68 -follow up labs in AM As per GI recommendations -lactulose 30ml BID, titrate to 2 BM per day -rifaximin 550mg PO BID -low sodium diet -u/s abdomen: no ascites 2. Type 2 DM with neuropathy - controlled hga1c: 6.5% -patient on insulin, metformin discontinued due to liver cirrhosis. (Patient uses Novolin 70/30, 25 units BID) -humalog 75/25, 25 units sc BID -ISS low dose coverage -accuchecks -gabapentin 300mg PO daily for neuropathy 3. DVT prophylaxis - lovenox 40mg sc 4. Leukopenia -chronic, likely secondary to liver cirrhosis -WBC: 3.6-->3.3 -monitor 5. thrombocytopenia -likely secondary to liver cirrhosis -plt: 88 -->83 -monitor
--- NOTE | 2016-09-11 09:04 | CP.PCM.PN ---
Objective - Vital Signs/Intake and Output Vital Signs (last 24 hours): Temp Pulse Resp BP Pulse Ox 98.2 F 57 L 18 115/68 99 09/11/16 07:37 09/11/16 07:37 09/11/16 07:37 09/11/16 07:37 09/11/16 07:37 - Medications Medications: Current Medications Dextrose (Dextrose 50% Inj) 0 ml IV STAT PRN; Protocol PRN Reason: Hyglycemia Protocol Dextrose (Glutose 15) 0 gm PO ONCE PRN; Protocol PRN Reason: Hypoglycemia Protocol Enoxaparin Sodium (Lovenox) 40 mg SC DAILY [facility] PRN Reason: Protocol Last Admin: 09/10/16 12:50 Dose: 40 mg Furosemide (Lasix) 40 mg PO DAILY [facility] Gabapentin (Neurontin) 300 mg PO DAILY [facility] Last Admin: 09/10/16 10:45 Dose: Not Given Glucagon (Glucagen Diagnostic Kit) 0 mg IM STAT PRN; Protocol PRN Reason: Hypoglycemia Protocol Insulin Human Lispro (Humalog) 0 units SC ACTID [facility] PRN Reason: Protocol Last Admin: 09/10/16 17:42 Dose: 3 u Insulin Lispro Protam/Lispro Human (Humalog Mix 75/25) 25 units SC QAM [facility] Last Admin: 09/10/16 09:00 Dose: Not Given Insulin Lispro Protam/Lispro Human (Humalog Mix 75/25) 25 units SC QPM [facility] Last Admin: 09/10/16 17:43 Dose: 25 units Lactulose (Enulose) 20 gm PO BID [facility] Last Admin: 09/10/16 17:51 Dose: 20 gm Rifaximin (Xifaxan) 550 mg PO BID [facility] Last Admin: 09/10/16 17:46 Dose: 550 mg Spironolactone (Aldactone) 50 mg PO DAILY [facility] - Labs Labs: 09/11/16 06:00 09/11/16 06:00 PT 14.2 Seconds (9.8-13.1) H 09/10/16 04:33 INR 1.3 (0.9-1.2) H 09/10/16 04:33 APTT 33.9 Seconds (25.6-37.1) 09/10/16 04:33
[2016-09-11] MEDS: Enoxaparin 40 mg Syringe SC SCH (10:00)
[2016-09-11] MEDS: Insulin Lispro (humaLOG) 100 Units/ml Inj SC SCH ×3 (10:04→16:38)
[2016-09-11] MEDS: Insulin Lispro Mix 75/25 100 units/ml (HumaLog) 10ml SC SCH ×2 (10:07→17:38)
[2016-09-12 00:29] VITALS: RESP 18
[2016-09-12 07:19] VITALS: BP 123/66; PULSE 60; TEMP 98.5; O2SAT 97
[2016-09-12] MEDS: Insulin Lispro (humaLOG) 100 Units/ml Inj SC SCH ×2 (07:53→12:40)
[2016-09-12 08:13] LABS: ALB/GLOB RATIO 0.8 (1.0-2.1); ALKALINE PHOSPHATASE 210 U/L (38-126); ALT/SGPT 55 U/L (9-52); AST/SGOT 54 U/L (14-36); BILIRUBIN,TOTAL 1.2 mg/dl (0.2-1.3); BLOOD UREA NITROGEN 17 mg/dl (7-17); CALCIUM 8.7 mg/dL (8.4-10.2); CARBON DIOXIDE 17 mmol/L (22-30); CHLORIDE 110 mmol/L (98-107); GFR AFRICAN-AMERICAN > 60; GLUCOSE,RANDOM 114 mg/dL (65-105); POTASSIUM 3.9 MMOL/L (3.6-5.0); SODIUM 136 mmol/l (132-148); TOTAL PROTEIN 6.7 G/DL (6.3-8.2)
[2016-09-12] MEDS: Enoxaparin 40 mg Syringe SC SCH (08:50)
[2016-09-12] MEDS: Insulin Lispro Mix 75/25 100 units/ml (HumaLog) 10ml SC SCH (08:54)
--- NOTE | 2016-09-12 11:53 | CP.PCM.DIS ---
Provider - Provider Date of Admission: 09/10/16 04:37 Attending physician: Livier Valerio MD Primary care physician: Megan Alejandre MD Consults: GI: Time Spent in preparation of Discharge (in minutes): 45 Diagnosis - Discharge Diagnosis (1) Hepatic encephalopathy Status: Acute (2) Altered mental status Status: Acute (3) Hyperammonemia Status: Acute (4) Cirrhosis Status: Chronic (5) HTN (hypertension) Status: Chronic Hospital Course - Lab Results Lab Results: Micro Results 09/10/16 10:24 Blood-Venous Blood Culture - Preliminary NO GROWTH AFTER 48 HOURS 09/10/16 10:24 Blood-Venous Blood Culture - Preliminary NO GROWTH AFTER 48 HOURS 09/10/16 12:27 Urine,Catheterized Urine Culture - Preliminary No growth. Most Recent Lab Values WBC 3.3 K/uL (4.8-10.8) L 09/11/16 06:00 RBC 3.27 Mil/uL (3.80-5.20) L 09/11/16 06:00 Hgb 11.5 g/dL (12.0-16.0) L 09/11/16 06:00 Hct 33.8 % (34.0-47.0) L 09/11/16 06:00 MCV 103.3 fl (81.0-99.0) H 09/11/16 06:00 MCH 35.1 pg (27.0-31.0) H 09/11/16 06:00 MCHC 34.0 g/dL (33.0-37.0) 09/11/16 06:00 RDW 14.4 % (11.5-14.5) 09/11/16 06:00 Plt Count 83 K/uL (130-400) L 09/11/16 06:00 MPV 9.8 fl (7.2-11.7) 09/11/16 06:00 Neut % (Auto) 51.0 % (50.0-75.0) 09/11/16 06:00 Lymph % (Auto) 32.2 % (20.0-40.0) 09/11/16 06:00 [place] % (Auto) 12.8 % (0.0-10.0) H 09/11/16 06:00 Eos % (Auto) 3.0 % (0.0-4.0) 09/11/16 06:00 Baso % (Auto) 1.0 % (0.0-2.0) 09/11/16 06:00 Neut # 1.7 K/uL (1.8-7.0) L 09/11/16 06:00 Lymph # 1.1 K/uL (1.0-4.3) 09/11/16 06:00 [place] # 0.4 K/uL (0.0-0.8) 09/11/16 06:00 Eos # 0.1 K/uL (0.0-0.7) 09/11/16 06:00 Baso # 0.0 K/uL (0.0-0.2) 09/11/16 06:00 PT 14.2 Seconds (9.8-13.1) H 09/10/16 04:33 INR 1.3 (0.9-1.2) H 09/10/16 04:33 APTT 33.9 Seconds (25.6-37.1) 09/10/16 04:33 Sodium 136 mmol/l (132-148) 09/12/16 06:15 Potassium 3.9 MMOL/L (3.6-5.0) 09/12/16 06:15 Chloride 110 mmol/L (98-107) H 09/12/16 06:15 Carbon Dioxide 17 mmol/L (22-30) L 09/12/16 06:15 Anion Gap 13 (10-20) 09/12/16 06:15 BUN 17 mg/dl (7-17) 09/12/16 06:15 Creatinine 0.6 mg/dL (0.7-1.2) L 09/12/16 06:15 Est GFR ( Amer) > 60 09/12/16 06:15 Est GFR (Non-Af Amer) > 60 09/12/16 06:15 POC Glucose (mg/dL) 453 mg/dL (65-110) H* 09/12/16 10:54 Random Glucose 114 mg/dL (65-105) H 09/12/16 06:15 Hemoglobin A1c 6.5 % (4.2-6.5) 09/10/16 08:14 Calcium 8.7 mg/dL (8.4-10.2) 09/12/16 06:15 Total Bilirubin 1.2 mg/dl (0.2-1.3) 09/12/16 06:15 AST 54 U/L (14-36) H 09/12/16 06:15 ALT 55 U/L (9-52) H 09/12/16 06:15 Alkaline Phosphatase 210 U/L (38-126) H D 09/12/16 06:15 Ammonia 38 umo/L (11-51) D 09/12/16 06:15 Total Protein 6.7 G/DL (6.3-8.2) 09/12/16 06:15 Albumin 3.0 g/dL (3.5-5.0) L 09/12/16 06:15 Globulin 3.7 gm/dL (2.2-3.9) 09/12/16 06:15 Albumin/Globulin Ratio 0.8 (1.0-2.1) L 09/12/16 06:15 Urine Color Yellow (YELLOW) 09/10/16 12:27 Urine Clarity Clear (Clear) 09/10/16 12:27 Urine pH 8.0 (5.0-8.0) 09/10/16 12:27 Ur Specific [place] 1.011 (1.003-1.030) 09/10/16 12:27 Urine Protein Negative mg/dL (NEGATIVE) 09/10/16 12:27 Urine Glucose (UA) Neg mg/dL (Normal) 09/10/16 12:27 Urine Ketones Negative mg/dL (NEGATIVE) 09/10/16 12:27 Urine Blood Negative (NEGATIVE) 09/10/16 12:27 Urine Nitrate Negative (NEGATIVE) 09/10/16 12:27 Urine Bilirubin Negative (NEGATIVE) 09/10/16 12:27 Urine Urobilinogen 0.2-1.0 mg/dL (0.2-1.0) 09/10/16 12:27 Ur Leukocyte Esterase Neg Li/uL (Negative) 09/10/16 12:27 Urine RBC (Auto) 2 /hpf (0-3) 09/10/16 12:27 Urine Microscopic WBC 1 /hpf (0-5) 09/10/16 12:27 C. difficile Ag & Toxin Negative (NEGATIVE) 09/11/16 12:30 - Hospital Course Hospital Course: 71 year old F with PMHx of Liver cirrhosis secondary to unknown etiology, HLD, DM (A1C-5.5), cataracts, osteoporosis, TIA, Dementia admitted for AMS. Patient' s ammonia level was 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 GI was consulted. Patient was seen and examined at bedside this morning. Patient's mental status better with alert and oriented x3 and ammonia level went down to wnl. Patient is stable to discharge to home today and instructed to follow up clinic closely for ascites. GI recommended hold lasix and aldactone for now due to no ascites. Home Med: Hold Furosemide (Lasix) 40 mg PO DAILY [facility] Hold Spironolactone (Aldactone) 50 mg PO DAILY [facility] Gabapentin (Neurontin) 300 mg PO DAILY [facility] Insulin Lispro Protam/Lispro Human (Humalog Mix 75/25) 25 units SC QAM [facility] Insulin Lispro Protam/Lispro Human (Humalog Mix 75/25) 25 units SC QPM [facility] Lactulose (Enulose) 20 gm PO BID [facility] Rifaximin (Xifaxan) 550 mg PO BID [facility] Discharge Exam - Head Exam Head Exam: NORMAL INSPECTION, NORMOCEPHALIC - Eye Exam Eye Exam: EOMI, Normal appearance, PERRL Pupil Exam: NORMAL ACCOMODATION, PERRL - ENT Exam ENT Exam: Mucous Membranes Moist - Neck Exam Neck exam: Full Rom, Normal Inspection - Respiratory Exam Respiratory Exam: Clear to PA & Lateral, NORMAL BREATHING PATTERN - Cardiovascular Exam Cardiovascular Exam: REGULAR RHYTHM, RRR, +S1, +S2 - GI/Abdominal Exam GI & Abdominal Exam: Normal Bowel Sounds, Soft. absent: Tenderness - Extremities Exam Extremities exam: full ROM, normal capillary refill - Back Exam Back exam: FULL ROM - Neurological Exam Neurological exam: Alert, CN II-XII Intact, Normal Gait, Oriented x3 - Psychiatric Exam Psychiatric exam: Normal Affect, Normal Mood - Skin Skin Exam: Dry, Intact, Normal Color, Warm Discharge Plan - Follow Up Plan Condition: FAIR Disposition: HOME/ ROUTINE Instructions: Hepatic Encephalopathy (DC) Additional Instructions: follow up at [facility] within 3-5 days and follow up GI with Hold lasix and Spironolactone (Aldactone) Referrals: Hill WILD,MD Megan [Primary Care Provider] -
== END 2016-09-12 13:56 | disposition home or self-care (01) | DRG 205 ==
LOC: H.ER 04:03 → H.ERHOLD 04:37 → H.MEDSURG1 06:30 → H.ERHOLD 07:32
PROVIDERS: ADMIT Family Medicine Geriatric Medicine; ATTEND Family Medicine Geriatric Medicine
DX: K72.90 Hepatic failure, unspecified without coma (principal); D69.6 Thrombocytopenia, unspecified; R18.8 Other ascites; E72.4 Disorders of ornithine metabolism; F03.90 Unspecified dementia, unspecified severity, without behavioral disturbance, psychotic disturbance, mood disturbance, and anxiety; E11.40 Type 2 diabetes mellitus with diabetic neuropathy, unspecified; K74.69 Other cirrhosis of liver; K76.6 Portal hypertension; D72.818 Other decreased white blood cell count; E78.00 Pure hypercholesterolemia, unspecified; E78.5 Hyperlipidemia, unspecified; I10 Essential (primary) hypertension; K31.89 Other diseases of stomach and duodenum; M81.0 Age-related osteoporosis without current pathological fracture; Z86.73 Personal history of transient ischemic attack (TIA), and cerebral infarction without residual deficits

== ENCOUNTER 2016-10-01 10:33 | Observation (INO) | payer SELFPAY ==
[2016-10-01 10:33] VITALS: BMI 35.1
[2016-10-01 12:26] LABS: BASO % 0.3 % (0.0-2.0); HEMOGLOBIN 11.6 g/dL (12.0-16.0); LYMPH # 0.3 K/uL (1.0-4.3); LYMPH % 4.2 % (20.0-40.0); MEAN CELL VOLUME 100.5 fl (81.0-99.0); MEAN CORPUSCULAR HEMOGLOBIN 34.4 pg (27.0-31.0); MEAN CORPUSCULAR HGB CONC 34.3 g/dL (33.0-37.0); MEAN PLATELET VOLUME 9.9 fl (7.2-11.7); MONO # 0.5 K/uL (0.0-0.8); MONO % 8.2 % (0.0-10.0); NEUT # 5.4 K/uL (1.8-7.0); NEUT % 87.3 % (50.0-75.0); RBC 3.37 Mil/uL (3.80-5.20); RED CELL DISTRIBUTION WIDTH 14.3 % (11.5-14.5); WHITE BLOOD COUNT 6.2 K/uL (4.8-10.8)
[2016-10-01 12:37] LABS: ALB/GLOB RATIO 0.9 (1.0-2.1); ALBUMIN 3.2 g/dL (3.5-5.0); ALT/SGPT 44 U/L (9-52); AMYLASE 80 U/L (30-110); AST/SGOT 51 U/L (14-36); BLOOD UREA NITROGEN 19 mg/dl (7-17); CALCIUM 8.8 mg/dL (8.4-10.2); GFR AFRICAN-AMERICAN > 60; GFR NON-AFRICAN AMERICAN > 60; LIPASE 103 U/L (23-300)
[2016-10-01 12:57] LABS: PLATELET COUNT 93 K/uL (130-400)
[2016-10-01 13:18] LABS: ANISOCYTOSIS SLIGHT; BANDS 3 % (0-2); LYMPHOCYTE 1 % (20-50); MONOCYTE 6 % (0-10); NEUTROPHIL 90 % (42-75); PLATELET ESTIMATE DECREASED (NORMAL); TOTAL CELLS COUNTED 100
[2016-10-01] MEDS ORDERED: Sodium Chloride 0.9% 50 ML IV ONE (13:24)
[2016-10-01] MEDS ORDERED: Iodixanol 320 MG/ML 100 ML BOTTLE IV ONE (13:24)
[2016-10-01] MEDS ORDERED: Iohexol 300 100 ML IJ ONE (13:26)
--- NOTE | 2016-10-01 14:21 | CT ---
PROCEDURE: CT Abdomen and Pelvis with contrast HISTORY: Left lower quadrant abdominal pain. Diverticulitis suspected COMPARISON: None. TECHNIQUE: Contrast dose: 90 cc Omnipaque 300. Radiation dose: Total exam DLP = 415.75 mGy-cm. This CT exam was performed using one or more of the following dose reduction techniques: Automated exposure control, adjustment of the mA and/or kV according to patient size, and/or use of iterative reconstruction technique. FINDINGS: LOWER THORAX: Unremarkable. LIVER: Mild fatty infiltration liver. Irregular contour to the liver, hypertrophy of caudate lobe. Findings likely represent cirrhotic liver without focal mass. Portal veins are dilated. And there are large venous varicosities throughout the anterior aspect of the abdomen/intraperitoneal space. GALLBLADDER AND BILE DUCTS: Status post cholecystectomy. No abnormality is seen in the gallbladder fossa. PANCREAS: Unremarkable. No gross lesion or ductal dilatation. SPLEEN: Splenomegaly. The constellation of findings in the liver, spleen and portal venous system suggests a component of portal venous hypertension. Dilated splenic vein and venous varicosities noted primarily in the left upper quadrant. ADRENALS: Unremarkable. No mass. KIDNEYS AND URETERS: Unremarkable. No hydronephrosis. No solid mass. VASCULATURE: Unremarkable. No aortic aneurysm. BOWEL: Mildly dilated small bowel without a transition point. Findings are more consistent with ileus than early/incomplete small bowel obstruction. APPENDIX: Normal appendix. PERITONEUM: Unremarkable. No free fluid. No free air. LYMPH NODES: Unremarkable. No enlarged lymph nodes. BLADDER: Unremarkable. REPRODUCTIVE: Prior hysterectomy. BONES: No acute fracture. OTHER FINDINGS: None. IMPRESSION: Bowel gas pattern consistent with ileus rather than obstruction. Additional benign and/or incidental findings described above. No evidence of acute inflammatory process. No evidence of inflammatory bowel disease, colitis, diverticulitis.
[2016-10-01 14:39] LABS: SQUAMOUS EPITHIAL 7 /hpf (0-5); URINE BILIRUBIN NEGATIVE (NEGATIVE); URINE BLOOD NEGATIVE (NEGATIVE); URINE CLARITY SLIGHTY-CLOUDY (Clear); URINE COLOR YELLOW (YELLOW); URINE GLUCOSE (UA) NEG (Normal); URINE LEUKOCYTE ESTERASE TRACE Leu/uL (Negative); URINE NITRATE NEGATIVE (NEGATIVE); URINE PROTEIN NEGATIVE (NEGATIVE); URINE UROBILINOGEN 0.2-1.0 mg/dL (0.2-1.0)
--- NOTE | 2016-10-01 15:53 | CP.PCM.HP ---
History of Present Illness - History of Present Illness History of Present Illness: 71F with PMH of cryptogenic cirrhosis, DM, HTN, Esophageal varices, portal hypertensive gastropathy, brought in by her partner for altered mental status, weakness and diarrhea x 8 overnight. The patient was in her usual state of health until last night. The partner, reports that she seemed tired, weak and was having tremors so he brought her to the ED. Patient admits to dysuria, abdominal pain that is diffuse, but points to suprapubic region when asked where its worst. Family bedside states chills have been present for 4 days, increased urinary frequency. The patient was taking her medications as directed until 2-3 days ago, partner states he began giving the patient spironolactone and lasix due to pedal edema. In the ED, the pt was oriented to person, place but not to time, unable to state age. Denies any recent illness, fevers or sick contacts. PMD: [facility], last visit 09/29/16 GI: Dr Alejandre PMH: cryptogenic cirrhosis, DM, HTN, Esophageal varices,portal hypertensive gastropathy ALL: NKDA Meds: Lactulose, omeprazole, neurontin, insulin humalog 75/25 Social: Smoke, Alcohol, illicit drugs ED course: VS: T:101.8, HR 85, BP: 127/65, RR: 18, spO2: 99% on RA. Labs: CBC: 6.2 > 11.6 /33.8 < 93 CMP: 131/ 4/2 105/15 19/0.7 <102 AST: 51 ALT 44 Alk phos: 191 Ammonia: 78 amylase/lipase : WNL UA: trace leukocyte esterase Imaging: CT abd/pelvis: IMPRESSION: Bowel gas pattern consistent with ileus rather than obstruction. No evidence of acute inflammatory process. No evidence of inflammatory bowel disease, colitis, diverticulitis. Present on Admission - Present on Admission Any Indicators Present on Admission: No Past Patient History - Infectious Disease Hx of Infectious Diseases: None - Past Medical History & Family History Past Medical History?: Yes - Past Social History Smoking Status: Never Smoked - CARDIAC Hx Hypercholesterolemia: Yes Hx Hypertension: Yes Hx Pacemaker: No - PULMONARY Hx Respiratory Disorders: No - NEUROLOGICAL Hx Transient Ischemic Attacks (TIA): Yes - HEENT Hx HEENT Problems: No - RENAL Hx Chronic Kidney Disease: No - ENDOCRINE/METABOLIC Hx Endocrine Disorders: Yes Hx Diabetes Mellitus Type 1: Yes - HEMATOLOGICAL/ONCOLOGICAL Hx Blood Disorders: No - INTEGUMENTARY Hx Dermatological Problems: No - MUSCULOSKELETAL/RHEUMATOLOGICAL Hx Osteoporosis: Yes - GASTROINTESTINAL Other/Comment: Liver Cirrhosis - GENITOURINARY/GYNECOLOGICAL Hx Genitourinary Disorders: No - PSYCHIATRIC Hx Psychophysiologic Disorder: No Hx Substance Use: No - SURGICAL HISTORY Hx Cholecystectomy: Yes - ANESTHESIA Hx Anesthesia: Yes Hx Anesthesia Reactions: No Hx Malignant Hyperthermia: No Meds Allergies/Adverse Reactions: Allergies Allergy/AdvReac Type Severity Reaction Status Date / Time No Known Allergies Allergy Verified 09/10/16 04:21 Physical Exam - Constitutional Appears: No Acute Distress, Confused - Head Exam Head Exam: NORMAL INSPECTION - Eye Exam Eye Exam: EOMI, Scleral icterus (mild). absent: Conjunctival injection Pupil Exam: PERRL - ENT Exam ENT Exam: Mucous Membranes Moist - Respiratory Exam Respiratory Exam: Clear to Auscultation Bilateral, NORMAL BREATHING PATTERN. absent: Decreased Breath Sounds, Rhonchi, Respiratory Distress - Cardiovascular Exam Cardiovascular Exam: REGULAR RHYTHM, +S1, +S2, Systolic Murmur. absent: Bradycardia, Tachycardia - GI/Abdominal Exam GI & Abdominal Exam: Diminished Bowel Sounds, Soft, Tenderness (diffuse). absent: Distended, Guarding - Extremities Exam Extremities exam: Negative for: calf tenderness, pedal edema, tenderness - Neurological Exam Additional comments: alert to person and place, not to time. - Skin Skin Exam: Dry, Intact, Warm Results - Vital Signs Recent Vital Signs: Last Vital Signs Temp 101.8 F H 10/01/16 15:34 Pulse 73 10/01/16 15:25 Resp 20 10/01/16 15:25 BP 115/50 L 10/01/16 15:25 Pulse Ox 98 10/01/16 15:25 - Labs Result Diagrams: 10/01/16 17:46 10/01/16 16:30 Labs: Laboratory Results - last 24 hr 10/01/16 10/01/16 10/01/16 12:20 12:20 12:20 WBC 6.2 D RBC 3.37 L Hgb 11.6 L Hct 33.8 L MCV 100.5 H D MCH 34.4 H MCHC 34.3 RDW 14.3 Plt Count 93 L MPV 9.9 Neut % (Auto) 87.3 H Lymph % (Auto) 4.2 L [place] % (Auto) 8.2 Eos % (Auto) 0.0 Baso % (Auto) 0.3 Neut # 5.4 Lymph # 0.3 L [place] # 0.5 Eos # 0.0 Baso # 0.0 Neutrophils % (Manual) 90 H Band Neutrophils % 3 H Lymphocytes % (Manual) 1 L Monocytes % (Manual) 6 Platelet Estimate Decreased L Anisocytosis (manual) Slight Sodium 131 L Potassium 4.2 Chloride 105 Carbon Dioxide 15 L Anion Gap 15 BUN 19 H Creatinine 0.7 Est GFR ( Amer) > 60 Est GFR (Non-Af Amer) > 60 Random Glucose 202 H Calcium 8.8 Total Bilirubin 1.3 AST 51 H ALT 44 Alkaline Phosphatase 191 H Ammonia 78 H D Total Protein 6.7 Albumin 3.2 L Globulin 3.5 Albumin/Globulin Ratio 0.9 L Amylase 80 Lipase 103 Urine Color Urine Clarity Urine pH Ur Specific [place] Urine Protein Urine Glucose (UA) Urine Ketones Urine Blood Urine Nitrate Urine Bilirubin Urine Urobilinogen Ur Leukocyte Esterase Urine RBC (Auto) Ur Squamous Epith Cells C. difficile Ag & Toxin 10/01/16 10/01/16 13:30 13:30 WBC RBC Hgb Hct MCV MCH MCHC RDW Plt Count MPV Neut % (Auto) Lymph % (Auto) [place] % (Auto) Eos % (Auto) Baso % (Auto) Neut # Lymph # [place] # Eos # Baso # Neutrophils % (Manual) Band Neutrophils % Lymphocytes % (Manual) Monocytes % (Manual) Platelet Estimate Anisocytosis (manual) Sodium Potassium Chloride Carbon Dioxide Anion Gap BUN Creatinine Est GFR ( Amer) Est GFR (Non-Af Amer) Random Glucose Calcium Total Bilirubin AST ALT Alkaline Phosphatase Ammonia Total Protein Albumin Globulin Albumin/Globulin Ratio Amylase Lipase Urine Color Yellow Urine Clarity Slighty-cloudy Urine pH 6.0 Ur Specific [place] 1.016 Urine Protein Negative Urine Glucose (UA) Neg Urine Ketones Negative Urine Blood Negative Urine Nitrate Negative Urine Bilirubin Negative Urine Urobilinogen 0.2-1.0 Ur Leukocyte Esterase Trace Urine RBC (Auto) 3 Ur Squamous Epith Cells 7 H C. difficile Ag & Toxin Negative Assessment & Plan (1) Hepatic encephalopathy Status: Acute (2) Altered mental status Status: Acute (3) Dehydration Status: Acute (4) Cryptogenic cirrhosis Status: Chronic (5) Anemia Status: Chronic (6) Diabetes Status: Chronic (7) Thrombocytopenia Status: Chronic (8) DVT prophylaxis Status: Acute - Assessment and Plan (Free Text) Assessment: 71F with PMH of cryptogenic cirrhosis, DM, HTN, Esophageal varices brought in by her partner for altered mental status, weakness and diarrhea x 8 overnight admitted for altered mental status, likely secondary to hepatic encephalopathy, rule out UTI, rule out pneumonia. She has had extensive workup in the past for etiology of cryptogenic cirrhosis. Patient has not had BM since arrival in ED. Patient spiked fever of 101.8 in ED. Hart cultures ordered. CXR ordered, rule out pneumonia . Altered mental status . Hepatic encephalopathy -likely secondary to dehydration vs infection, given patients diarrhea and fever. ideally would like to hold lactulose however given patients hyperammonemia will continue. IVF for hydration. -Pt is typically leukopenic, WBC of 6.2 may be a result of hemoconcentration vs. infection -hart cultures: blood, urine, stool cultures ordered. -empiric antibiotics: Zosyn -tylenol for fever Follow up: -abdominal ultrasound to assess for ascites -cultures -alpha 1 antitrypsin -GI consult : Dr. Alejandre . DM -resume home medications -insulin sliding scale -low dose -hypoglycemic bundle . Anemia and thrombocytopenia -chronic, cbc in am to monitor . DVT prophylaxis - heparin q8 hrs -monitor plts
[2016-10-01] MEDS: Insulin Regular 100 units/ml SC SCH ×2 (16:23→22:09)
[2016-10-01] MEDS ORDERED: Glucagon Recombinant 1 mg Inj IM PRN (16:41)
[2016-10-01] MEDS ORDERED: Dextrose 50% SYRINGE Inj (50 ml) IVP PRN (16:41)
[2016-10-01 17:50] LABS: BASO % 0.4 % (0.0-2.0); EOS % 0.1 % (0.0-4.0); HEMOGLOBIN 11.1 g/dL (12.0-16.0); LYMPH # 0.3 K/uL (1.0-4.3); LYMPH % 6.3 % (20.0-40.0); MEAN PLATELET VOLUME 10.2 fl (7.2-11.7); MONO # 0.5 K/uL (0.0-0.8); MONO % 10.1 % (0.0-10.0); NEUT # 4.3 K/uL (1.8-7.0); NEUT % 83.1 % (50.0-75.0); RBC 3.26 Mil/uL (3.80-5.20); RED CELL DISTRIBUTION WIDTH 14.3 % (11.5-14.5); WHITE BLOOD COUNT 5.2 K/uL (4.8-10.8)
[2016-10-01 17:52] LABS: ALB/GLOB RATIO 0.8 (1.0-2.1); ALT/SGPT 49 U/L (9-52); AST/SGOT 50 U/L (14-36); BLOOD UREA NITROGEN 16 mg/dl (7-17); CALCIUM 8.7 mg/dL (8.4-10.2); GFR AFRICAN-AMERICAN > 60; GFR NON-AFRICAN AMERICAN > 60
[2016-10-01] MEDS ORDERED: Insulin Lispro Mix 75/25 100 units/ml (HumaLog) 10ml SC SCH (18:00)
[2016-10-01] MEDS: Potassium Chl 20 mEq in NS 1,000 ML IV SCH (18:55)
[2016-10-02 05:51] VITALS: RESP 20
[2016-10-02] MEDS: Potassium Chl 20 mEq in NS 1,000 ML IV SCH (06:48)
[2016-10-02] MEDS: Insulin Regular 100 units/ml SC SCH ×3 (07:03→22:08)
--- NOTE | 2016-10-02 07:49 | RAD ---
PROCEDURE: CHEST RADIOGRAPH, 1 VIEW HISTORY: ams, fever COMPARISON: None available. FINDINGS: LUNGS: Clear. PLEURA: No pneumothorax or pleural fluid seen. CARDIOVASCULAR: Normal. OSSEOUS STRUCTURES: No significant abnormalities. VISUALIZED UPPER ABDOMEN: Normal. OTHER FINDINGS: None. IMPRESSION: No active disease.
[2016-10-02] MEDS: Insulin Lispro Mix 75/25 100 units/ml (HumaLog) 10ml SC SCH (08:56)
[2016-10-02] MEDS: Pantoprazole 40 mg EC Tab PO SCH (08:56)
--- NOTE | 2016-10-02 09:53 | CP.PCM.CON ---
History of Present Illness - History of Present Illness History of Present Illness: CC: Abdominal pain HPI: 71 year old female with h/o Cirrhosis, DM, HTN, esophageal varices, hepatic encephalopathy admitted with diarrhea and abdominal pain. She says the her abdominal pain started yesterday, is contstant, moderately severe, and she has not had it before. She localizes the pain to the bilateral lower abdomen. She also reports non-bloody diarrhea in the past 24 hours associated. She denies sick contacts or any possible food ingestion that may have caused the problem. She denies confusion, bleeding. She does have a fever. No abdominal distention. NO vomiting. No chest pain or sob. Takes lactulose and rifaxamin at home for h/o encephalopathy. PMHx: Cryptogenic cirrhosis, DM, HTN, Esophageal varices, hepatic encephalopathy PSHx: none SHx: denies etoh abuse, smoking or drugs FHx no family history of gi disease ROS A comprehensive review of systems was performed and was negative apart from HPI Past Patient History - Infectious Disease Hx of Infectious Diseases: None - Past Medical History & Family History Past Medical History?: Yes - Past Social History Smoking Status: Never Smoked - CARDIAC Hx Hypercholesterolemia: Yes Hx Hypertension: Yes Hx Pacemaker: No - PULMONARY Hx Respiratory Disorders: No - NEUROLOGICAL Hx Transient Ischemic Attacks (TIA): Yes - HEENT Hx HEENT Problems: No - RENAL Hx Chronic Kidney Disease: No - ENDOCRINE/METABOLIC Hx Endocrine Disorders: Yes Hx Diabetes Mellitus Type 1: Yes - HEMATOLOGICAL/ONCOLOGICAL Hx Blood Disorders: No - INTEGUMENTARY Hx Dermatological Problems: No - MUSCULOSKELETAL/RHEUMATOLOGICAL Hx Osteoporosis: Yes - GASTROINTESTINAL Other/Comment: Liver Cirrhosis - GENITOURINARY/GYNECOLOGICAL Hx Genitourinary Disorders: No - PSYCHIATRIC Hx Psychophysiologic Disorder: No Hx Substance Use: No - SURGICAL HISTORY Hx Cholecystectomy: Yes - ANESTHESIA Hx Anesthesia: Yes Hx Anesthesia Reactions: No Hx Malignant Hyperthermia: No Meds Allergies/Adverse Reactions: Allergies Allergy/AdvReac Type Severity Reaction Status Date / Time No Known Allergies Allergy Verified 09/10/16 04:21 - Medications Medications: Current Medications Acetaminophen (Tylenol 325mg Tab) 650 mg PO Q6 PRN PRN Reason: Fever >100.4 F Dextrose (Dextrose 50% Inj) 0 ml IVP STAT PRN; Protocol PRN Reason: Hypoglycemia Protocol Gabapentin (Neurontin) 300 mg PO DAILY [facility] Last Admin: 10/02/16 08:56 Dose: Not Given Glucagon (Glucagen Diagnostic Kit) 0 mg IM STAT PRN; Protocol PRN Reason: Hypoglycemia Protocol Heparin Sodium (Porcine) (Heparin) 5,000 units SC Q12 [facility] PRN Reason: Protocol Last Admin: 10/01/16 21:13 Dose: 5,000 units Potassium Chloride/Sodium Chloride (Potassium Chl 20 Meq In Ns) 1,000 mls @ 75 mls/hr IV .[id number] [facility] Stop: 10/02/16 16:13 Last Admin: 10/02/16 06:48 Dose: Not Given Insulin Human Regular (Humulin R) 0 units SC ACHS [facility] PRN Reason: Protocol Last Admin: 10/02/16 07:03 Dose: Not Given Insulin Lispro Protam/Lispro Human (Humalog Mix 75/25) 20 units SC QPM [facility] Last Admin: 10/01/16 18:55 Dose: 20 units Insulin Lispro Protam/Lispro Human (Humalog Mix 75/25) 25 units SC QAM [facility] Last Admin: 10/02/16 08:56 Dose: Not Given Pantoprazole Sodium (Protonix Ec Tab) 40 mg PO DAILY [facility] Last Admin: 10/02/16 08:56 Dose: Not Given Rifaximin (Xifaxan) 550 mg PO BID [facility] Physical Exam - Constitutional Appears: Non-toxic, No Acute Distress, Chronically Ill - Head Exam Head Exam: ATRAUMATIC, NORMOCEPHALIC - Eye Exam Eye Exam: Normal appearance. absent: Scleral icterus - ENT Exam ENT Exam: Mucous Membranes Moist, Normal Oropharynx - Neck Exam Neck exam: Negative for: Lymphadenopathy, Thyromegaly - Respiratory Exam Respiratory Exam: Clear to Auscultation Bilateral, NORMAL BREATHING PATTERN. absent: Respiratory Distress, Stridor - Cardiovascular Exam Cardiovascular Exam: REGULAR RHYTHM, +S1, +S2 - GI/Abdominal Exam GI & Abdominal Exam: Soft. absent: Distended, Firm, Guarding, Tenderness - Extremities Exam Extremities exam: Positive for: normal capillary refill. Negative for: pedal edema - Neurological Exam Neurological exam: Alert, Oriented x3 - Psychiatric Exam Psychiatric exam: Normal Affect, Normal Mood - Skin Skin Exam: Dry, Warm Results - Vital Signs Recent Vital Signs: Last Vital Signs Temp 99 F 10/02/16 08:37 Pulse 64 10/02/16 08:37 Resp 20 10/02/16 08:37 BP 93/48 L 10/02/16 08:37 Pulse Ox 98 10/02/16 08:37 - Labs Result Diagrams: 10/01/16 17:46 10/01/16 16:30 Labs: Laboratory Results - last 24 hr 10/01/16 10/01/16 10/01/16 16:16 16:30 16:30 WBC Cancelled RBC Cancelled Hgb Cancelled Hct Cancelled MCV Cancelled MCH Cancelled MCHC Cancelled RDW Cancelled Plt Count Cancelled MPV Cancelled Gran % Cancelled Neut % (Auto) Lymph % (Auto) Cancelled Archer % (Auto) Cancelled Eos % (Auto) Cancelled Baso % (Auto) Cancelled Gran # Cancelled Neut # Lymph # Cancelled Archer # Cancelled Eos # Cancelled Baso # Cancelled Sodium 131 L Potassium 3.8 Chloride 105 Carbon Dioxide 17 L Anion Gap 13 BUN 16 Creatinine 0.7 Est GFR ( Amer) > 60 Est GFR (Non-Af Amer) > 60 POC Glucose (mg/dL) 98 Random Glucose 85 Lactic Acid Calcium 8.7 Total Bilirubin 1.1 AST 50 H ALT 49 Alkaline Phosphatase 197 H Total Protein 6.6 Albumin 3.0 L Globulin 3.6 Albumin/Globulin Ratio 0.8 L Hccsy-3-Tsqxgmrihuy 10/01/16 10/01/16 10/01/16 16:30 17:46 20:00 WBC 5.2 RBC 3.26 L Hgb 11.1 L Hct 32.5 L MCV 100.0 H MCH 34.0 H MCHC 34.0 RDW 14.3 Plt Count 89 L MPV 10.2 Gran % Neut % (Auto) 83.1 H Lymph % (Auto) 6.3 L Archer % (Auto) 10.1 H Eos % (Auto) 0.1 Baso % (Auto) 0.4 Gran # Neut # 4.3 Lymph # 0.3 L Archer # 0.5 Eos # 0.0 Baso # 0.0 Sodium Potassium Chloride Carbon Dioxide Anion Gap BUN Creatinine Est GFR ( Amer) Est GFR (Non-Af Amer) POC Glucose (mg/dL) Random Glucose Lactic Acid 2.4 H Calcium Total Bilirubin AST ALT Alkaline Phosphatase Total Protein Albumin Globulin Albumin/Globulin Ratio [id number]-[id number] 165 10/01/16 10/02/16 21:50 05:55 WBC RBC Hgb Hct MCV MCH MCHC RDW Plt Count MPV Gran % Neut % (Auto) Lymph % (Auto) Archer % (Auto) Eos % (Auto) Baso % (Auto) Gran # Neut # Lymph # Archer # Eos # Baso # Sodium Potassium Chloride Carbon Dioxide Anion Gap BUN Creatinine Est GFR ( Amer) Est GFR (Non-Af Amer) POC Glucose (mg/dL) 89 141 H Random Glucose Lactic Acid Calcium Total Bilirubin AST ALT Alkaline Phosphatase Total Protein Albumin Globulin Albumin/Globulin Ratio Qulmj-2-Dzrkdvofiln Assessment & Plan - Assessment and Plan (Free Text) Assessment: 71 year old female with history of cryptogenic cirrhosis, DM, HTN, Esophageal varices, HE admitted with lower abdominal pain and diarrhea, noted to have mild ileus on imaging. 1. Abdominal pain 2. Diarrhea 3. Ileus 4. Cirrhosis 5. Hepatic encephalopathy Plan: -c.diff negative -send stool for culture, O&P -diet as tolerated -supportive care -CT scan reviewed, mild ileus noted -US abdomen to r/o ascites, though doubt this -recommend infectious workup for fever including blood cultures/urine cultures -start rifaxamin 550 bid for h/o HE -hold lactulose due to diarrhea -no diuretics indicated at this time -cirrhosis may be due to SLATER considering h/o DM, other previous workup negative -will follow - Date & Time Date: 10/02/16 Time: 09:53
--- NOTE | 2016-10-02 20:14 | US ---
PROCEDURE: HISTORY: assess for ascites COMPARISON: TECHNIQUE: FINDINGS: Limited abdominal ultrasound demonstrates no significant ascites in the abdominal pelvic cavity. IMPRESSION: As above.
[2016-10-03] MEDS: Insulin Regular 100 units/ml SC SCH ×2 (06:59→11:57)
--- NOTE | 2016-10-03 08:17 | CP.PCM.PN ---
<Richard Edmond - Last Filed: 10/03/16 09:05> Subjective - Date & Time of Evaluation Date of Evaluation: 10/03/16 Time of Evaluation: 07:45 - Subjective Subjective: PGY5 GI Fellow Progress Note Patient seen and examined bedside this morning. The patient has no new complaints at this time. States she is feeling better and denies any further episodes of diarrhea or abdominal pain. No fever, chills, nausea, vomiting. No episodes overnight. Discussed with nursing staff. 12 system ROS performed and negative except where stated. Objective - Vital Signs/Intake and Output Vital Signs (last 24 hours): Temp Pulse Resp BP Pulse Ox 98.5 F 62 20 108/64 98 10/03/16 00:52 10/03/16 00:52 10/03/16 00:52 10/03/16 00:52 10/03/16 00:52 - Medications Medications: Current Medications Acetaminophen (Tylenol 325mg Tab) 650 mg PO Q6 PRN PRN Reason: Fever >100.4 F Dextrose (Dextrose 50% Inj) 0 ml IVP STAT PRN; Protocol PRN Reason: Hypoglycemia Protocol Gabapentin (Neurontin) 300 mg PO DAILY [facility] Last Admin: 10/02/16 08:56 Dose: Not Given Glucagon (Glucagen Diagnostic Kit) 0 mg IM STAT PRN; Protocol PRN Reason: Hypoglycemia Protocol Heparin Sodium (Porcine) (Heparin) 5,000 units SC Q12 [facility] PRN Reason: Protocol Last Admin: 10/02/16 21:58 Dose: 5,000 units Insulin Human Regular (Humulin R) 0 units SC ACHS [facility] PRN Reason: Protocol Last Admin: 10/03/16 06:59 Dose: 1 u Insulin Lispro Protam/Lispro Human (Humalog Mix 75/25) 20 units SC QPM [facility] Last Admin: 10/01/16 18:55 Dose: 20 units Insulin Lispro Protam/Lispro Human (Humalog Mix 75/25) 25 units SC QAM [facility] Last Admin: 10/02/16 08:56 Dose: Not Given Pantoprazole Sodium (Protonix Ec Tab) 40 mg PO DAILY [facility] Last Admin: 10/02/16 08:56 Dose: Not Given Rifaximin (Xifaxan) 550 mg PO BID [facility] Last Admin: 10/02/16 11:26 Dose: 550 mg - Labs Labs: 10/01/16 17:46 10/01/16 16:30 - Constitutional Appears: Non-toxic, No Acute Distress - Eye Exam Eye Exam: EOMI, PERRL - ENT Exam ENT Exam: Mucous Membranes Moist - Respiratory Exam Respiratory Exam: Clear to Ausculation Bilateral. absent: Rales, Rhonchi, Wheezes - Cardiovascular Exam Cardiovascular Exam: RRR, +S1, +S2 - GI/Abdominal Exam GI & Abdominal Exam: Soft, Normal Bowel Sounds. absent: Distended, Firm, Guarding, Rigid, Tenderness, Organomegaly - Extremities Exam Extremities Exam: Normal Inspection. absent: Pedal Edema - Neurological Exam Neurological Exam: Alert, Awake Additional comments: Alert to year, place, name - thinks it is May - Psychiatric Exam Psychiatric exam: Normal Affect, Normal Mood - Skin Skin Exam: Dry, Warm Assessment and Plan - Assessment and Plan (Free Text) Assessment: Patient is a 71yo female with PMHx significant for cryptogenic cirrhosis, DM, HTN, esophageal varices, HE admitted with lower abdominal pain and diarrhea, noted to have mild ileus on imaging. 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 -C.diff negative -No events overnight, tolerating diet, no pain -Continue supportive care -No ascites noted on U/S -GNR in urine, had one dose ceftriaxone; blood cx with NGTD -On Rifaxamin 550 bid, Lactulose held 2/2 diarrhea on presentation <Aj Portillo - Last Filed: 10/03/16 09:56> Objective - Vital Signs/Intake and Output Vital Signs (last 24 hours): Temp Pulse Resp BP Pulse Ox 97.9 F 58 L 20 118/66 99 10/03/16 08:25 10/03/16 08:25 10/03/16 08:25 10/03/16 08:25 10/03/16 08:25 - Medications Medications: Current Medications Acetaminophen (Tylenol 325mg Tab) 650 mg PO Q6 PRN PRN Reason: Fever >100.4 F Dextrose (Dextrose 50% Inj) 0 ml IVP STAT PRN; Protocol PRN Reason: Hypoglycemia Protocol Gabapentin (Neurontin) 300 mg PO DAILY [facility] Last Admin: 10/03/16 09:30 Dose: 300 mg Glucagon (Glucagen Diagnostic Kit) 0 mg IM STAT PRN; Protocol PRN Reason: Hypoglycemia Protocol Heparin Sodium (Porcine) (Heparin) 5,000 units SC Q12 [facility] PRN Reason: Protocol Last Admin: 10/03/16 09:31 Dose: 5,000 units Insulin Human Regular (Humulin R) 0 units SC ACHS [facility] PRN Reason: Protocol Last Admin: 10/03/16 06:59 Dose: 1 u Insulin Lispro Protam/Lispro Human (Humalog Mix 75/25) 20 units SC QPM [facility] Last Admin: 10/01/16 18:55 Dose: 20 units Insulin Lispro Protam/Lispro Human (Humalog Mix 75/25) 25 units SC QAM [facility] Last Admin: 10/03/16 09:31 Dose: 25 units Pantoprazole Sodium (Protonix Ec Tab) 40 mg PO DAILY [facility] Last Admin: 10/03/16 09:30 Dose: 40 mg Rifaximin (Xifaxan) 550 mg PO BID [facility] Last Admin: 10/03/16 09:30 Dose: 550 mg - Labs Labs: 10/01/16 17:46 10/01/16 16:30 Attending/Attestation - Attestation I have personally seen and examined this patient.: Yes I have fully participated in the care of the patient.: Yes I have reviewed all pertinent clinical information, including history, physical exam and plan: Yes Notes (Text): 10/03/16 09:53 71 year old female with history of cryptogenic cirrhosis, DM, HTN, Esophageal varices, HE admitted with lower abdominal pain and diarrhea, noted to have mild ileus on imaging. 1. Urinary tract infection 2. Cirrhosis 3. Hepatic encephalopathy Plan: -c.diff negative -stool culture final result pending -urine positive for GNR, pain improved with antibiotics -tolerating regular diet -no further diarrhea, fever resolved -US negative for ascites -continue rifaxamin 550 bid for h/o HE -restart lactulose at home -no diuretics indicated at this time -cirrhosis may be due to SLATER considering h/o DM, other previous workup negative -recommend treatment of UTI with antibiotics -ok to discharge from GI standpoint, will sign off
[2016-10-03 08:25] VITALS: BP 118/66; PULSE 58; TEMP 97.9; O2SAT 99
[2016-10-03] MEDS: Pantoprazole 40 mg EC Tab PO SCH (09:30)
[2016-10-03] MEDS: Insulin Lispro Mix 75/25 100 units/ml (HumaLog) 10ml SC SCH (09:31)
--- NOTE | 2016-10-03 15:35 | CP.PCM.DIS ---
Provider - Provider Date of Admission: 10/01/16 14:39 Attending physician: Livier Valerio MD Primary care physician: Elsa Tejeda MD Consults: Dr. Bandar ROWE Time Spent in preparation of Discharge (in minutes): 30 Diagnosis - Discharge Diagnosis (1) Hepatic encephalopathy Status: Resolved (2) Acute cystitis Status: Acute (3) Cryptogenic cirrhosis Status: Chronic (4) Altered mental status Status: Resolved Hospital Course - Lab Results Lab Results: Micro Results 10/01/16 16:10 Urine Urine Culture - Final Escherichia Coli 10/01/16 17:23 Blood Blood Culture - Preliminary NO GROWTH AFTER 24 HOURS Most Recent Lab Values WBC 5.2 K/uL (4.8-10.8) 10/01/16 17:46 RBC 3.26 Mil/uL (3.80-5.20) L 10/01/16 17:46 Hgb 11.1 g/dL (12.0-16.0) L 10/01/16 17:46 Hct 32.5 % (34.0-47.0) L 10/01/16 17:46 MCV 100.0 fl (81.0-99.0) H 10/01/16 17:46 MCH 34.0 pg (27.0-31.0) H 10/01/16 17:46 MCHC 34.0 g/dL (33.0-37.0) 10/01/16 17:46 RDW 14.3 % (11.5-14.5) 10/01/16 17:46 Plt Count 89 K/uL (130-400) L 10/01/16 17:46 MPV 10.2 fl (7.2-11.7) 10/01/16 17:46 Gran % Cancelled 10/01/16 16:30 Neut % (Auto) 83.1 % (50.0-75.0) H 10/01/16 17:46 Lymph % (Auto) 6.3 % (20.0-40.0) L 10/01/16 17:46 Miner % (Auto) 10.1 % (0.0-10.0) H 10/01/16 17:46 Eos % (Auto) 0.1 % (0.0-4.0) 10/01/16 17:46 Baso % (Auto) 0.4 % (0.0-2.0) 10/01/16 17:46 Gran # Cancelled 10/01/16 16:30 Neut # 4.3 K/uL (1.8-7.0) 10/01/16 17:46 Lymph # 0.3 K/uL (1.0-4.3) L 10/01/16 17:46 Miner # 0.5 K/uL (0.0-0.8) 10/01/16 17:46 Eos # 0.0 K/uL (0.0-0.7) 10/01/16 17:46 Baso # 0.0 K/uL (0.0-0.2) 10/01/16 17:46 Neutrophils % (Manual) 90 % (42-75) H 10/01/16 12:20 Band Neutrophils % 3 % (0-2) H 10/01/16 12:20 Lymphocytes % (Manual) 1 % (20-50) L 10/01/16 12:20 Monocytes % (Manual) 6 % (0-10) 10/01/16 12:20 Platelet Estimate Decreased (NORMAL) L 10/01/16 12:20 Anisocytosis (manual) Slight 10/01/16 12:20 Sodium 131 mmol/l (132-148) L 10/01/16 16:30 Potassium 3.8 MMOL/L (3.6-5.0) 10/01/16 16:30 Chloride 105 mmol/L (98-107) 10/01/16 16:30 Carbon Dioxide 17 mmol/L (22-30) L 10/01/16 16:30 Anion Gap 13 (10-20) 10/01/16 16:30 BUN 16 mg/dl (7-17) 10/01/16 16:30 Creatinine 0.7 mg/dL (0.7-1.2) 10/01/16 16:30 Est GFR ( Amer) > 60 10/01/16 16:30 Est GFR (Non-Af Amer) > 60 10/01/16 16:30 POC Glucose (mg/dL) 355 mg/dL (65-110) H 10/03/16 10:44 Random Glucose 85 mg/dL (65-105) 10/01/16 16:30 Lactic Acid 2.4 MMOL/L (0.7-2.1) H 10/01/16 20:00 Calcium 8.7 mg/dL (8.4-10.2) 10/01/16 16:30 Total Bilirubin 1.1 mg/dl (0.2-1.3) 10/01/16 16:30 AST 50 U/L (14-36) H 10/01/16 16:30 ALT 49 U/L (9-52) 10/01/16 16:30 Alkaline Phosphatase 197 U/L (38-126) H 10/01/16 16:30 Ammonia 58 umo/L (11-51) H 10/03/16 07:00 Total Protein 6.6 G/DL (6.3-8.2) 10/01/16 16:30 Albumin 3.0 g/dL (3.5-5.0) L 10/01/16 16:30 Globulin 3.6 gm/dL (2.2-3.9) 10/01/16 16:30 Albumin/Globulin Ratio 0.8 (1.0-2.1) L 10/01/16 16:30 Uuzxz-3-Uwknawlzkvw 165 mg/dL (83-199) 10/01/16 16:30 Amylase 80 U/L (30-110) 10/01/16 12:20 Lipase 103 U/L (23-300) 10/01/16 12:20 Urine Color Yellow (YELLOW) 10/01/16 13:30 Urine Clarity Slighty-cloudy (Clear) 10/01/16 13:30 Urine pH 6.0 (5.0-8.0) 10/01/16 13:30 Ur Specific [place] 1.016 (1.003-1.030) 10/01/16 13:30 Urine Protein Negative mg/dL (NEGATIVE) 10/01/16 13:30 Urine Glucose (UA) Neg mg/dL (Normal) 10/01/16 13:30 Urine Ketones Negative mg/dL (NEGATIVE) 10/01/16 13:30 Urine Blood Negative (NEGATIVE) 10/01/16 13:30 Urine Nitrate Negative (NEGATIVE) 10/01/16 13:30 Urine Bilirubin Negative (NEGATIVE) 10/01/16 13:30 Urine Urobilinogen 0.2-1.0 mg/dL (0.2-1.0) 10/01/16 13:30 Ur Leukocyte Esterase Trace Li/uL (Negative) 10/01/16 13:30 Urine RBC (Auto) 3 /hpf (0-3) 10/01/16 13:30 Ur Squamous Epith Cells 7 /hpf (0-5) H 10/01/16 13:30 C. difficile Ag & Toxin Negative (NEGATIVE) 10/01/16 13:30 - Hospital Course Hospital Course: 71 F with PMH of cryptogenic cirrhosis, DM, HTN, Esophageal varices brought in by her partner for altered mental status, weakness and diarrhea. AMS was associated with hepatic encephalopathy b/c her ammonia levels were elevated from her baseline. Patient was also complaining of Lower abdominal pain and tenderness. GI was consulted to rule out SBP or ascites, US was ordered which was negative for fluid build up. Blood and urine cultures were ordered, Urine culture came back positive for Negative rods. Patient was diagnosed with acute cystitis and given two doses of Ceftriaxone and her symptoms significantly improved. Discharge Medications: Keflex 500mg PO Q12 Rifaximin 550mg PO BID Gabapentin 300mg PO daily Insulin Lispro Mix 75/25, 25 unit SC QAM Lactulose 20ml PO TID Omeprazole 40mg PO daily Discharge Exam - Head Exam Head Exam: ATRAUMATIC, NORMAL INSPECTION, NORMOCEPHALIC - Eye Exam Eye Exam: Normal appearance Pupil Exam: NORMAL ACCOMODATION - Neck Exam Neck exam: Full Rom - Respiratory Exam Respiratory Exam: NORMAL BREATHING PATTERN, UNREMARKABLE. absent: Accessory Muscle Use, Chest Wall Tenderness, Wheezes - Cardiovascular Exam Cardiovascular Exam: REGULAR RHYTHM, RRR, +S1, +S2. absent: Gallop, +S4, Systolic Murmur - GI/Abdominal Exam GI & Abdominal Exam: Normal Bowel Sounds, Soft. absent: Hyperactive Bowel Sounds, Hypoactive Bowel Sounds, Pulsatile Mass, Rebound, Rigid, Tenderness - Extremities Exam Extremities exam: normal inspection, pedal pulses present - Back Exam Back exam: absent: CVA tenderness (L), CVA tenderness (R) - Neurological Exam Neurological exam: Alert, CN II-XII Intact, Normal Gait, Oriented x3 - Psychiatric Exam Psychiatric exam: Normal Mood - Skin Skin Exam: Normal Color Discharge Plan - Discharge Medications Prescriptions: Cephalexin [Keflex] 500 mg PO Q12 #10 capsule rifAXIMin [Xifaxan] 550 mg PO BID #60 tab - Follow Up Plan Condition: FAIR Disposition: HOME/ ROUTINE Patient education suggested?: Yes Instructions: Urinary Tract Infection in Women (DC), Hepatic Encephalopathy (DC ) Additional Instructions: Complete course of cephalexin 500mg PO every 12 hours for an additional 5 days Start rifaximin 550mg twice daily Follow up at [facility] and with GI as scheduled ED precautions given Referrals: [facility] [place] [Outside]
--- NOTE | 2016-10-23 07:26 | ED PDOC ---
HPI:Nausea, Vomiting, Diarrhea Time Seen by Provider: 10/01/16 11:11 Chief Complaint (Nursing): GI Problem History Per: Patient History/Exam Limitations: no limitations Onset/Duration Of Symptoms: Days (4), Gradual Current Symptoms Are (Timing): Still Present Severity: Mild Quality Of Discomfort: Aching, Cramping Associated Symptoms: Diarrhea Exacerbating Factors: None Alleviating Factors: None Additional History Per: Patient Additional Complaint(s): 71F with PMH of cryptogenic cirrhosis, DM, HTN, Esophageal varices, portal hypertensive gastropathy, brought in by her partner for altered mental status, weakness and diarrhea x 8 overnight. The patient was in her usual state of health until last night. The partner, reports that she seemed tired, weak and was having tremors so he brought her to the ED. Patient admits to dysuria, abdominal pain that is diffuse, but points to suprapubic region when asked where its worst. Family bedside states chills have been present for 4 days, increased urinary frequency. The patient was taking her medications as directed until 2-3 days ago, partner states he began giving the patient spironolactone and lasix due to pedal edema. Past Medical History Reviewed: Historical Data, Nursing Documentation, Vital Signs Vital Signs: Last Vital Signs Temp 97.9 F 10/03/16 08:25 Pulse 58 L 10/03/16 08:25 Resp 20 10/03/16 08:25 BP 118/66 10/03/16 08:25 Pulse Ox 99 10/03/16 08:25 - Medical History PMH: Diabetes, HTN, Hypercholesterolemia, Osteoporosis, TIA Denies: Chronic Kidney Disease - Surgical History Surgical History: Cholecystectomy Denies: Pacemaker - Family History Family History: States: Unknown Family Hx - Living Arrangements Living Arrangements: With Family - Social History Current smoker - smoking cessation education provided: No - Home Medications Home Medications: Ambulatory Orders Medication Instructions Recorded Gabapentin [Neurontin] 300 mg PO DAILY 06/05/16 Omeprazole 40 mg PO DAILY 07/11/16 Insulin Lispro Mix 75/25 [HumaLOG 20 unit SC QPM 10/01/16 Mix 75/25] Insulin Lispro Mix 75/25 [HumaLOG 25 unit SC QAM 10/01/16 Mix 75/25] Lactulose [Generlac] 20 ml PO TID 10/01/16 Cephalexin [Keflex] 500 mg PO Q12 #10 capsule 10/03/16 rifAXIMin [Xifaxan] 550 mg PO BID #60 tab 10/03/16 - Allergies Allergies/Adverse Reactions: Allergies Allergy/AdvReac Type Severity Reaction Status Date / Time No Known Allergies Allergy Verified 09/10/16 04:21 Review of Systems ROS Statement: Except As Marked, All Systems Reviewed And Found Negative Constitutional: Negative for: Fever, Chills Cardiovascular: Negative for: Chest Pain, Palpitations Respiratory: Negative for: Cough, Shortness of Breath Gastrointestinal: Positive for: Abdominal Pain, Diarrhea Physical Exam - Reviewed Nursing Documentation Reviewed: Yes Vital Signs Reviewed: Yes - Physical Exam Appears: Positive for: Uncomfortable Head Exam: Positive for: ATRAUMATIC, NORMAL INSPECTION, NORMOCEPHALIC Eye Exam: Positive for: Normal appearance, EOMI, PERRL Neck: Positive for: Normal, Painless ROM, Supple Cardiovascular/Chest: Positive for: Regular Rate, Rhythm, Chest Non Tender. Negative for: Edema, Gallop, Murmur, Bradycardia, Tachycardia Respiratory: Positive for: Normal Breath Sounds. Negative for: Decreased Breath Sounds, Accessory Muscle Use, Crackles, Rales, Rhonchi, Stridor, Wheezing Gastrointestinal/Abdominal: Positive for: Bowel Sounds (nml), Soft, Tenderness ( llq), Distended (mild). Negative for: Rebound, Hernia, Asicites Back: Positive for: Normal Inspection. Negative for: L CVA Tenderness, R CVA Tenderness Extremity: Positive for: Normal ROM. 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 Negative for: Motor/Sensory Deficits - Laboratory Results Result Diagrams: 10/01/16 17:46 10/01/16 16:30 - ECG O2 Sat by Pulse Oximetry: 99 Pulse Ox Interpretation: Normal Disposition - Clinical Impression Clinical Impression: Ileus - Patient ED Disposition Is Patient to be Admitted: Yes Counseled Patient/Family Regarding: Studies Performed, Diagnosis, Need For Followup - Disposition Disposition Time: 11:00 Condition: FAIR - POA Present On Arrival: None
== END 2016-10-03 18:34 | disposition home or self-care (01) ==
LOC: H.ER 10:33 → H.ERHOLD 14:39 → H.MEDSURG1 16:56
PROVIDERS: ADMIT Family Medicine Geriatric Medicine; ATTEND Family Medicine Geriatric Medicine
DX: K72.90 Hepatic failure, unspecified without coma (principal); N30.00 Acute cystitis without hematuria; K74.69 Other cirrhosis of liver; R19.7 Diarrhea, unspecified; K56.7 Ileus, unspecified; E72.20 Disorder of urea cycle metabolism, unspecified; D64.9 Anemia, unspecified; D69.6 Thrombocytopenia, unspecified; E10.9 Type 1 diabetes mellitus without complications; I10 Essential (primary) hypertension; E86.0 Dehydration; K76.6 Portal hypertension; K31.89 Other diseases of stomach and duodenum; M81.0 Age-related osteoporosis without current pathological fracture; Z86.73 Personal history of transient ischemic attack (TIA), and cerebral infarction without residual deficits; E78.00 Pure hypercholesterolemia, unspecified